=== PATIENT | male | born 1960 | race Caucasian/White ===

== ENCOUNTER 2016-07-15 12:41 | Emergency (ER) | payer OTHER ==
[~2016-07-15] VITALS: Ht 162.6 cm; Wt 65.8 kg
[~2016-07-15 12:41] MED LIST: AMOXICILLIN500 MG PO; ASPIRIN81 M1 PO; AZULFIDINE500 M1 PO; CLARITIN10 MG PO; GLUCOPHAGE500 MG PO; JANUMET 500 MG-1 TAB PO; LANTUS SOLOS100 U/ML SUBQ; LISINOPRIL5 M1 PO; LOPRESSOR25 MG PO
[2016-07-15 13:30] VITALS: BP 138/81
--- NOTE | 2016-07-15 14:30 | NUR ---
Patient to bed 06.
--- NOTE | 2016-07-15 14:35 | NUR ---
56/M BIB FAMILY C/O FACIAL SWELLING LEFT SIDE X4 DAYS---UPPER TOOTH PAIN FACIAL ASYMMETRY, TONGUE MIDLINE, NO DRIFT. PT DENIES N/V/D; SKIN IS PINK/WARM/DRY; AAOX4 WITH EVEN AND STEADY GAIT; LUNGS CLEAR BL; HR EVEN AND REGULAR; PT DENIES ANY FEVER, CP, SOB, OR COUGH AT THIS TIME; PATIENT STATES PAIN OF 8/10 AT THIS TIME; VSS; PATIENT POSITIONED FOR COMFORT; HOB ELEVATED; BEDRAILS UP X2; BED DOWN. ER MD MADE AWARE OF PT STATUS.
--- NOTE | 2016-07-15 14:52 | NUR ---
Dr. Dela Cruz evaluating patient at bedside.
[2016-07-15] MEDS ORDERED: MORPHINE SULFATE 2 MG/ML SYR IVP ONE ×2 (15:05→16:55)
[2016-07-15] MEDS ORDERED: NACL 0.9% 1,000 ML IV ONE ×2 (15:05→16:00)
[2016-07-15] MEDS ORDERED: NACL 0.9% 500 ML IV ONE (17:35)
[2016-07-15] MEDS: metFORMIN 500 MG TAB PO STA ×2 (18:13→18:19)
[2016-07-15] MEDS: metFORMIN 500 MG TAB PO SCH ×2 (18:14→18:17)
--- NOTE | 2016-07-15 19:00 | NUR ---
IV removed, catheter intact and site benign. Applied folded 4x4 gauze and tape to stop bleeding.
[2016-07-15 19:07] VITALS: BP 146/86
--- NOTE | 2016-07-15 19:07 | NUR ---
Patient discharged with v/s stable. Written and verbal after care instructions given and explained. Patient alert, oriented and verbalized understanding of instructions. Ambulatory with steady gait. All questions addressed prior to discharge. ID band removed. Patient advised to follow up with PMD. Rx of METFORMIN HYDROCHLORIDE, IBUPROFEN, AUGMENTIN & NORCO given. Patient educated on indication of medication including possible reaction and side effects. Opportunity to ask questions provided and answered.
== END 2016-07-15 19:07 | disposition home or self-care (01) ==
LOC: MED 12:41
DX: K04.7 Periapical abscess without sinus (principal); E11.65 Type 2 diabetes mellitus with hyperglycemia; E87.1 Hypo-osmolality and hyponatremia; Z79.82 Long term (current) use of aspirin; Z79.899 Other long term (current) drug therapy
CPT/HCPCS: 36415; 80053; 81001; 82009; 82948; 85025; 96361; 96374; 99284; J2270; J7030

== ENCOUNTER 2017-06-17 23:34 | Emergency (ER) | payer OTHER ==
[~2017-06-17] VITALS: Ht 162.6 cm; Wt 67.8 kg
[~2017-06-17 23:34] MED LIST changes: +AMOX500C25 PO; -AMOXICILLIN500 MG PO; +ASPI81CT89 PO; -ASPIRIN81 M1 PO; -AZULFIDINE500 M1 PO; -CLARITIN10 MG PO; -GLUCOPHAGE500 MG PO; -JANUMET 500 MG-1 TAB PO; -LANTUS SOLOS100 U/ML SUBQ; -LISINOPRIL5 M1 PO; -LOPRESSOR25 MG PO; +METF1TAB PO; +METO25TA PO
[2017-06-17 23:45] VITALS: BP 183/97
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
[2017-06-18] MEDS ORDERED: HYDROcodone/APAP 10/325 MG 1 TAB TAB PO ONE (00:10)
[2017-06-18 02:07] VITALS: BP 142/79
--- NOTE | 2017-06-18 02:07 | NUR ---
Patient discharged with v/s stable. Written and verbal after care instructions given and explained. Pt states pain reduced to 6/10. Patient alert, oriented and verbalized understanding of instructions. Ambulatory with steady gait. All questions addressed prior to discharge. ID band removed. Patient advised to follow up with PMD. Rx of Fortescue given. Patient educated on indication of medication including possible reaction and side effects. Opportunity to ask questions provided and answered.
== END 2017-06-18 02:07 | disposition home or self-care (01) ==
LOC: MED 23:34
DX: S20.20XA Contusion of thorax, unspecified, initial encounter (principal); E11.9 Type 2 diabetes mellitus without complications; I10 Essential (primary) hypertension; Z79.899 Other long term (current) drug therapy; Z79.82 Long term (current) use of aspirin; V03.09XA Pedestrian with other conveyance injured in collision with car, pick-up truck or van in nontraffic accident, initial encounter; Y93.89 Activity, other specified; Y92.59 Other trade areas as the place of occurrence of the external cause; Y99.8 Other external cause status
CPT/HCPCS: 71101; 99284

== ENCOUNTER 2017-06-19 18:30 | Emergency (ER) | payer OTHER ==
[~2017-06-19] VITALS: Ht 162.6 cm; Wt 67.8 kg
[2017-06-19 19:06] VITALS: BP 150/89
--- NOTE | 2017-06-19 19:45 | NUR ---
PT TAKEN TO BED 4
[2017-06-19] MEDS ORDERED: KETOROLAC 60 MG/2 ML VIAL IM ONE (20:50)
--- NOTE | 2017-06-19 21:00 | NUR ---
PT C/O RT SIDE RIB PAIN S/P FALL ON MONDAY. PT WAS SEEN HERE IN HOSPITAL ON MONDAY AND D/C. PT STATES PAIN IS "WORSE" AND "BONES ARE MOVING". NO OPEN SKIN, REDNESS, BLEEDING, OR SWELLING NOTED. PT STATES HE FELL ONTO TOOL BOX ON MONDAY ON HIS RIGHT SIDE OF RIBS. PT HAS TENDERNESS TO RT SIDE OF RIBS 7/10 PAIN AT REST. PT DENIES LOC, PT AA&OX4 IN BED.
[2017-06-19 21:48] VITALS: BP 151/80
--- NOTE | 2017-06-19 21:48 | NUR ---
Patient discharged with v/s stable. Written and verbal after care instructions given and explained. Patient alert, oriented and verbalized understanding of instructions. Ambulatory with steady gait. All questions addressed prior to discharge. ID band removed. Patient advised to follow up with PMD. Rx of FLEXERIL, NAPROXEN given. Patient educated on indication of medication including possible reaction and side effects. Opportunity to ask questions provided and answered.
== END 2017-06-19 21:48 | disposition home or self-care (01) ==
LOC: MED 18:30
DX: S20.211A Contusion of right front wall of thorax, initial encounter (principal); E11.9 Type 2 diabetes mellitus without complications; I10 Essential (primary) hypertension; W18.39XA Other fall on same level, initial encounter; Y93.89 Activity, other specified; Y92.89 Other specified places as the place of occurrence of the external cause; Y99.8 Other external cause status
CPT/HCPCS: 71101; 76705; 96372; 99284; J1885; Q0092

== ENCOUNTER 2017-12-13 05:00 | Emergency (ER) | payer OTHER ==
[~2017-12-13] VITALS: Ht 152.4 cm; Wt 68.0 kg
[2017-12-13 05:03] VITALS: BP 173/99
[2017-12-13] MEDS ORDERED: LANTUS SUBQ (05:42)
[2017-12-13 05:52] LABS: BASOPHILS # (AUTO) 0.1 K/uL (0.00-0.22); BASOPHILS % (AUTO) 0.9 % (0.0-2.0); EOSINOPHILS # (AUTO) 0.6 K/uL (0-0.4); EOSINOPHILS % (AUTO) 8.2 % (0.0-4.0); LYMPHOCYTES # (AUTO) 1.6 K/uL (2.0-11.5); MEAN CORPUSCULAR HEMOGLOBIN 30 pg (27-31); MEAN CORPUSCULAR HGB CONC 33 g/dL (33-37); MEAN CORPUSCULAR VOLUME 91.2 fL (80-94); MONOCYTES # (AUTO) 0.6 K/uL (0.8-1.0); MONOCYTES % (AUTO) 8.1 % (1.7-9.3); NEUTROPHILS # (AUTO) 4.2 K/uL (1.8-7.7); NEUTROPHILS % (AUTO) 59.8 % (42.2-75.2); PLATELET COUNT (AUTO) 250 K/uL (140-450); RED BLOOD CELL COUNT(AUTO) 4.06 MIL/uL (4.20-6.10); RED CELL DISTRIBUTION WIDTH 13.9 % (11.6-13.7)
[2017-12-13 05:59] LABS: APPEARANCE,URINE CLEAR (CLEAR); BILIRUBIN,URINE NEGATIVE (NEGATIVE); BLOOD, URINE 1+ (NEGATIVE); COLOR,URINE YELLOW (YELLOW); LEUKOCYTE ESTERASE ,URINE NEGATIVE (NEGATIVE); NITRITE, URINE NEGATIVE (NEGATIVE); PH,URINE 5.5 (5.0-9.0); UGLUCOSE NEGATIVE (NEGATIVE)
[2017-12-13 06:00] LABS: BARBITURATE, URINE NEG. ng/ml (NEG <=200); BENZODIAZEPINE, URINE NEG. ng/mL (NEG <=200); CANNABINOID, URINE NEG. ng/mL (NEG <=50); COCAINE, URINE NEG. ng/mL (NEG <=300); OPIATE, URINE NEG. ng/mL (NEG <=2000); PHENCYCLIDINE SCREEN,URINE NEG. ng/mL (NEG <=25)
[2017-12-13 06:09] LABS: ANION GAP 12.7 (8-16); CREATININE 1.1 mg/dL (0.7-1.3); POTASSIUM 3.7 mmol/L (3.5-5.1)
[2017-12-13 06:20] LABS: ALBUMIN 3.4 g/dL (3.4-5.0); TOTAL BILIRUBIN 0.3 mg/dL (0.0-1.0)
[2017-12-13 06:21] LABS: RBC,URINE 3-10 (FEW) /HPF (0-5); WBC,URINE 0-5 (RARE) /HPF (0-5)
[2017-12-13 06:22] LABS: YEAST,URINE Rare /HPF (None Seen)
[2017-12-13 06:40] VITALS: BP 178/90
== END 2017-12-13 06:40 | disposition home or self-care (01) ==
LOC: MED 05:00
DX: R60.0 Localized edema (principal); E11.649 Type 2 diabetes mellitus with hypoglycemia without coma; I10 Essential (primary) hypertension; Z79.4 Long term (current) use of insulin; Z79.899 Other long term (current) drug therapy
CPT/HCPCS: 36415; 71045; 80053; 80305; 81001; 82948; 83880; 85025; 93005; 99285; Q0092

== ENCOUNTER 2018-04-16 20:45 | Emergency (ER) | payer OTHER ==
[~2018-04-16] VITALS: Ht 165.1 cm; Wt 62.6 kg
[~2018-04-16 20:45] MED LIST changes: -AMOX500C25 PO; -ASPI81CT89 PO; +LANTUS SUBQ; -METF1TAB PO
[2018-04-16 20:54] VITALS: BP 176/96
[2018-04-16] MEDS ORDERED: NACL 0.9% 1,000 ML IV ONE (21:28)
[2018-04-16] MEDS ORDERED: NACL 0.9% 1,000 ML IV SCH (21:28)
[2018-04-16] MEDS ORDERED: hydrALAZINE 20 MG/ML VIAL IVP ONE (21:30)
[2018-04-16 22:03] LABS: BASOPHILS # (AUTO) 0.1 K/uL (0.00-0.22); BASOPHILS % (AUTO) 1.4 % (0.0-2.0); EOSINOPHILS # (AUTO) 0.5 K/uL (0-0.4); EOSINOPHILS % (AUTO) 8.9 % (0.0-4.0); HEMATOCRIT 34.1 % (36-52); HEMOGLOBIN 11.4 g/dL (12.0-18.0); LYMPHOCYTES # (AUTO) 1.2 K/uL (2.0-11.5); LYMPHOCYTES % (AUTO) 19.5 % (20.5-51.1); MEAN CORPUSCULAR HEMOGLOBIN 29 pg (27-31); MEAN CORPUSCULAR HGB CONC 33 g/dL (33-37); MEAN CORPUSCULAR VOLUME 88.2 fL (80-94); MONOCYTES # (AUTO) 0.6 K/uL (0.8-1.0); MONOCYTES % (AUTO) 9.7 % (1.7-9.3); NEUTROPHILS # (AUTO) 3.6 K/uL (1.8-7.7); NEUTROPHILS % (AUTO) 60.5 % (42.2-75.2); PLATELET COUNT (AUTO) 255 K/uL (140-450); RED BLOOD CELL COUNT(AUTO) 3.86 MIL/uL (4.20-6.10); RED CELL DISTRIBUTION WIDTH 12.9 % (11.6-13.7); WHITE BLOOD COUNT (AUTO) 5.9 K/uL (4.8-10.8)
[2018-04-16 22:18] LABS: ALBUMIN 2.3 g/dL (3.4-5.0); ANION GAP 9.6 (8-16); CARBON DIOXIDE 27.3 mmol/L (21-32); CREATININE 1.6 mg/dL (0.7-1.3); POTASSIUM 4.9 mmol/L (3.5-5.1); TOTAL BILIRUBIN 0.2 mg/dL (0.0-1.0)
[2018-04-16 23:20] VITALS: BP 120/63
== END 2018-04-16 23:20 | disposition home or self-care (01) ==
LOC: MED 20:45
DX: E11.65 Type 2 diabetes mellitus with hyperglycemia (principal); I10 Essential (primary) hypertension; Z79.4 Long term (current) use of insulin; Z79.899 Other long term (current) drug therapy
CPT/HCPCS: 36415; 70450; 71045; 80053; 82948; 84484; 85025; 93005; 96361; 96374; 99284; J0360; J7030; Q0092

== ENCOUNTER 2019-08-15 20:42 | Emergency (ER) | payer OTHER ==
[~2019-08-15] VITALS: Ht 162.6 cm; Wt 68.0 kg
--- NOTE | 2019-08-15 20:50 | NUR ---
PT AMBULATES TO BED 12 WITH UPRIGHT STEADY GAIT.
--- NOTE | 2019-08-15 21:20 | NUR ---
XRAY AT BEDSIDE.
--- NOTE | 2019-08-15 21:41 | NUR ---
PT FELL AT 1830 AT THE STORE; SLIPPED AND FELL ON RIGHT KNEE AND HIP. PAIN 6/10 TO HIP AND KNEE; NO REDNESS, SWELLING, OR BRUISING NOTED. DENIES HITTING HEAD. DENIES TAKING ANY MEDICATIONS FOR THE PAIN. DENIES TAKING BLOOD THINNERS. DENIES LIGHTHEADED OR DIZZINESS. LEGS EQUAL IN LENGTH; NO OBVIOUS DEFORMITIES. DORSALIS PEDIS PULSES +3 BILATERALLY. VSS. WILL CONTINUE TO MONITOR.
[2019-08-15 21:45] VITALS: BP 170/92
== END 2019-08-15 21:45 | disposition home or self-care (01) ==
LOC: MED 20:42
DX: S70.01XA Contusion of right hip, initial encounter (principal); I10 Essential (primary) hypertension; E11.9 Type 2 diabetes mellitus without complications; E78.5 Hyperlipidemia, unspecified; W01.0XXA Fall on same level from slipping, tripping and stumbling without subsequent striking against object, initial encounter; Y93.89 Activity, other specified; Y92.512 Supermarket, store or market as the place of occurrence of the external cause; Y99.8 Other external cause status
CPT/HCPCS: 73502; 99283; Q0092

== ENCOUNTER 2019-09-25 19:57 | Emergency (ER) | payer OTHER ==
[~2019-09-25] VITALS: Ht 167.6 cm; Wt 77.1 kg
[2019-09-25 20:06] VITALS: BP 161/86
[2019-09-25] MEDS ORDERED: NACL 0.9% 1,000 ML IV ONE ×2 (20:15→21:10)
[2019-09-25] MEDS ORDERED: LISINOPRIL 20 MG TAB PO ONE (20:15)
--- NOTE | 2019-09-25 20:20 | NUR ---
stat labs drawn and given to tutorial laboratory supervisor
--- NOTE | 2019-09-25 20:25 | NUR ---
59 Y/M BIBA FROM WORK FOR C/O GENERALIZED WEAKNESS X 5 DAYS. PT ALSO REPORTS DIZZINESS, BLURRED VISION, LIGHTHEADED AND BODY ACHES. PT DENIES ANY HEADACHE, CHEST PAIN, ABD PAIN, OR DYSURIA. PT DENIES N/V/D. PT HAS HX OF DM TYPE II AND HAS BEEN NON COMPLIANT WITH MEDICATIONS X 2 MONTHS. PT AFEBRILE. PT STATES HE HAS HAD COUGH ON AND OFF X 1 YEAR. LUNGS CLEAR, RR EVEN AND UNLABORED. MED HX: DM TYPE II, HTN NKDA
[2019-09-25 20:36] LABS: BASOPHILS % (AUTO) 0.5 % (0.0-2.0); EOSINOPHILS # (AUTO) 0.1 K/uL (0-0.4); EOSINOPHILS % (AUTO) 1.1 % (0.0-4.0); HEMATOCRIT 39.2 % (36-52); HEMOGLOBIN 12.9 g/dL (12.0-18.0); LYMPHOCYTES # (AUTO) 1.1 K/uL (2.0-11.5); LYMPHOCYTES % (AUTO) 19.4 % (20.5-51.1); MEAN CORPUSCULAR HEMOGLOBIN 30 pg (27-31); MEAN CORPUSCULAR HGB CONC 33 g/dL (33-37); MEAN CORPUSCULAR VOLUME 89.8 fL (80-94); MONOCYTES # (AUTO) 0.8 K/uL (0.8-1.0); MONOCYTES % (AUTO) 12.9 % (1.7-9.3); NEUTROPHILS # (AUTO) 3.9 K/uL (1.8-7.7); NEUTROPHILS % (AUTO) 66.1 % (42.2-75.2); PLATELET COUNT (AUTO) 203 K/uL (140-450); RED BLOOD CELL COUNT(AUTO) 4.37 MIL/uL (4.20-6.10); RED CELL DISTRIBUTION WIDTH 12.9 % (11.6-13.7); WHITE BLOOD COUNT (AUTO) 5.9 K/uL (4.8-10.8)
--- NOTE | 2019-09-25 20:40 | NUR ---
XR AT BEDSIDE.
[2019-09-25 20:53] LABS: APPEARANCE,URINE CLEAR (CLEAR); BILIRUBIN,URINE NEGATIVE (NEGATIVE); BLOOD, URINE 2+ (NEGATIVE); COLOR,URINE YELLOW (YELLOW); LEUKOCYTE ESTERASE ,URINE NEGATIVE (NEGATIVE); NITRITE, URINE NEGATIVE (NEGATIVE); UGLUCOSE 3+ (NEGATIVE)
[2019-09-25 20:53] LABS: ACETONE, SERUM NEGATIVE (NEGATIVE)
--- NOTE | 2019-09-25 20:55 | NUR ---
CALLED INTELLIGENCE SUPPORT OFFICER FOR MEAL FOR PT. OK PER DR. MCFARLANE.
[2019-09-25 21:00] LABS: ALBUMIN 1.7 g/dL (3.4-5.0); ANION GAP 10.8 (8-16); ASPARTATE AMINOTRANSFERASE 21 U/L (15-37); CARBON DIOXIDE 24.6 mmol/L (21-32); CHLORIDE 99 mmol/L (98-107); CREATININE 2.9 mg/dL (0.6-1.3); GFR ARICAN-AMERICAN 29 mL/min (>90); POTASSIUM 4.4 mmol/L (3.5-5.1); SODIUM SERUM 130 mmol/L (136-145); TOTAL BILIRUBIN 0.2 mg/dL (0.0-1.0); UREA NITROGEN, BLOOD 41 mg/dL (7-18)
--- NOTE | 2019-09-25 21:00 | NUR ---
CRITICAL LAB REPORT FROM DAMASO. GLUCOSE 476. ERMD MADE AWARE.
[2019-09-25 21:02] LABS: GLUCOSE 476 mg/dL (74-106)
[2019-09-25 21:09] LABS: RBC,URINE 0-5 /HPF (0-5); WBC,URINE NONE SEEN /HPF (0-5)
[2019-09-25 21:10] LABS: WAXY CASTS,URINE 0-10 /LPF (None Seen)
[2019-09-25] MEDS ORDERED: NACL 0.9% 500 ML IV ONE ×2 (21:10→22:05)
[2019-09-25] MEDS ORDERED: metFORMIN 500 MG TAB PO SCH (21:10)
[2019-09-25] MEDS ORDERED: INSULIN REGULAR, HUMAN 100 UNIT/ML VIAL SUBQ ONE ×2 (21:10→22:05)
--- NOTE | 2019-09-25 21:13 | NUR ---
PT SITTING UP IN BED EATING SANDWICH.
--- NOTE | 2019-09-25 22:41 | NUR ---
PT RESTING IN BED IN POSITION OF COMFORT, VSS, BED LOW AND LOCKED, 1 SIDERAIL UP , WILL CONTINUE TO MONITOR
--- NOTE | 2019-09-25 23:06 | NUR ---
LAB AT BEDSIDE.
[2019-09-25 23:25] LABS: ANION GAP 10.8 (8-16); CARBON DIOXIDE 22.1 mmol/L (21-32); CREATININE 2.5 mg/dL (0.6-1.3); POTASSIUM 3.9 mmol/L (3.5-5.1)
--- NOTE | 2019-09-26 00:15 | NUR ---
PT RESTING IN BED IN POSITION OF COMFORT, VSS, BED LOW AND LOCKED, 1 SIDERAIL UP , WILL CONTINUE TO MONITOR
[2019-09-26 01:02] VITALS: BP 137/71
--- NOTE | 2019-09-26 01:02 | NUR ---
Patient discharged with v/s stable. Written and verbal after care instructions given and explained. Patient alert, oriented and verbalized understanding of instructions. Ambulatory with steady gait. All questions addressed prior to discharge. ID band removed. Patient advised to follow up with PMD. Rx of AMLODIPINE/METFORMIN given. Patient educated on indication of medication including possible reaction and side effects. Opportunity to ask questions provided and answered.
== END 2019-09-26 01:02 | disposition home or self-care (01) ==
LOC: MED 19:57
DX: E11.65 Type 2 diabetes mellitus with hyperglycemia (principal); I10 Essential (primary) hypertension; N28.9 Disorder of kidney and ureter, unspecified; Z79.899 Other long term (current) drug therapy
CPT/HCPCS: 36415; 71045; 80048; 80053; 81001; 82009; 85025; 99284; J1815; J7030; Q0092

== ENCOUNTER 2019-09-29 17:17 | Inpatient (IN) | payer OTHER, SELFPAY ==
[~2019-09-29] VITALS: Ht 154.9 cm; Wt 64.9 kg
--- NOTE | 2019-09-29 17:25 | NUR ---
PT AMBULATED TO BED 10.
[2019-09-29 17:30] VITALS: BP 105/55
--- NOTE | 2019-09-29 18:00 | NUR ---
C/O WEAKNESS/COUGH/FEVER X4 DAYS. PT STATES HE WAS SEEN AT [facility] 09/25/19 AND SENT HOME. PT IS FEBRILE AT 100.9 PO, O2 SAT 95% RA WITH MOIST COUGH. NO RESP. DISTRESS NOTED. PT AWAKE ,ALERT, AFIBRILE , AMBULATORY WITH STEADY GAIT , SCE , CBS BLF , FLAT SOFT NABS NONTENDER ABDOMEN. HX: DM, HTN
[2019-09-29] MEDS ORDERED: NACL 0.9% 1,000 ML IV ONE ×2 (18:05→19:55)
[2019-09-29] MEDS ORDERED: INSULIN REGULAR, HUMAN 100 UNIT/ML VIAL SUBQ ONE (18:10)
--- NOTE | 2019-09-29 18:10 | NUR ---
DR GOMEZ AT BEDSIDE EVALUATING PT .
[2019-09-29 18:33] LABS: BASOPHILS % (AUTO) 0.3 % (0.0-2.0); HEMOGLOBIN 12.8 g/dL (12.0-18.0); LYMPHOCYTES # (AUTO) 0.6 K/uL (2.0-11.5); LYMPHOCYTES % (AUTO) 4.4 % (20.5-51.1); MEAN CORPUSCULAR HEMOGLOBIN 30 pg (27-31); MEAN CORPUSCULAR HGB CONC 32 g/dL (33-37); MEAN CORPUSCULAR VOLUME 92.3 fL (80-94); MONOCYTES # (AUTO) 0.5 K/uL (0.8-1.0); MONOCYTES % (AUTO) 3.5 % (1.7-9.3); NEUTROPHILS # (AUTO) 12.6 K/uL (1.8-7.7); NEUTROPHILS % (AUTO) 91.8 % (42.2-75.2); PLATELET COUNT (AUTO) 241 K/uL (140-450); RED BLOOD CELL COUNT(AUTO) 4.33 MIL/uL (4.20-6.10); RED CELL DISTRIBUTION WIDTH 13.2 % (11.6-13.7); WHITE BLOOD COUNT (AUTO) 13.8 K/uL (4.8-10.8)
--- NOTE | 2019-09-29 18:47 | NUR ---
PT COMFORTABLE IN BE SIDE RAILS UP X1 AND LOCK.
[2019-09-29 19:05] LABS: D-DIMER 1270 ng/ml (0-400)
--- NOTE | 2019-09-29 19:05 | NUR ---
rt at bedside.
--- NOTE | 2019-09-29 19:09 | NUR ---
gave report to davon garcia. pt awake in bed with stable v/s.
[2019-09-29 19:12] LABS: FIBRINOGEN > 500 mg/dL (200-400)
[2019-09-29] MEDS ORDERED: AZITHROMYCIN 250 MG TAB PO ONE (19:15)
[2019-09-29 19:25] LABS: ALBUMIN 1.5 g/dL (3.4-5.0); ANION GAP 18.4 (8-16); CARBON DIOXIDE 18.3 mmol/L (21-32); CREATININE 3.5 mg/dL (0.6-1.3); POTASSIUM 5.7 mmol/L (3.5-5.1); TOTAL BILIRUBIN 0.2 mg/dL (0.0-1.0)
[2019-09-29] MEDS ORDERED: cefTRIAXone 1,000 MG VIAL ONE (19:27)
--- NOTE | 2019-09-29 19:45 | NUR ---
AZITHROMYCIN PO AND ROCEPHIN IV PB INITIATED. 2ND IV SITE STARTED ON LEFT AC 18G WITH NS BOLUS
--- NOTE | 2019-09-29 19:45 | NUR ---
BLOOD SUGAR 546. DR WILLOUGHBY MADE AWARE.
--- NOTE | 2019-09-29 19:49 | NUR ---
Dr. Sam examining patient.
[2019-09-29] MEDS ORDERED: INSULIN REGULAR, HUMAN 100 UNIT in NACL 0.9% 100 ML IV ONE ×2 (19:55)
--- NOTE | 2019-09-29 20:00 | NUR ---
URINE COLLECTED AND SENT TO LAB.
--- NOTE | 2019-09-29 20:30 | NUR ---
INSULIN 100UNIT INFUSION INITIATED AT 7UNITS/HR
[2019-09-29 20:45] LABS: APPEARANCE,URINE HAZY (CLEAR); BILIRUBIN,URINE NEGATIVE (NEGATIVE); BLOOD, URINE 2+ (NEGATIVE); COLOR,URINE YELLOW (YELLOW); LEUKOCYTE ESTERASE ,URINE NEGATIVE (NEGATIVE); NITRITE, URINE NEGATIVE (NEGATIVE); UGLUCOSE 3+ (NEGATIVE)
[2019-09-29 20:50] VITALS: BP 129/63
[2019-09-29 20:50] LABS: COARSE GRANULAR CASTS,URINE 0-10 /LPF (None Seen); RBC,URINE 11-20 (MOD) /HPF (0-5); WBC,URINE 0-5 /HPF (0-5)
--- NOTE | 2019-09-29 20:50 | NUR ---
REPORT RECEIVED FROM ED NURSE AT BEDSIDE. PT IN STABLE CONDITION. AAOX4. PT HAS COMPLAINTS OF PAIN. WILL MEDICATE. NO SOB WITH A INTERMITTENT COUGH. AFEBRILE@97.8. PT IS AMBULATORY WITH ASSIST DUE TO GENERALIZED WEAKNESS. PT IS R/O COVID19 DUE TO COUGH UPON ADMISSION. DRY WEIGHT 65KG. IV SITE L AC 18G SL PATENT AND INTACT. R AC 20G RUNNING REGULAR INSULIN@7UNITS/HR PATENT AND INTACT. SKIN WARM, DRY, AND INTACT WITH NO OPEN WOUNDS. BED LOCKED IN LOW POSITION. CALL LAWSON WITHIN REACH. SAFETY PRECAUTION IN PLACE. ALL NEEDS MET AT THIS TIME.
[2019-09-29] MEDS: INSULIN REGULAR, HUMAN 100 UNIT in NACL 0.9% 100 ML IV SCH ×6 (21:00→23:00)
[2019-09-29] MEDS: BLOOD GLUCOSE MONITORING 1 DEV DEV FS SCH ×3 (21:00→22:59)
--- NOTE | 2019-09-29 21:00 | NUR ---
Patient will be admitted to care of DR SULTANA. Admited to ICU . Will go to room 8. Belongings list completed. Report to AUDELIA GIL .
--- NOTE | 2019-09-29 21:00 | NUR ---
BS 443. AWAITING FOR INSULIN DRIP ORDERS.
[2019-09-29 22:00] VITALS: BP 103/54
[2019-09-29] MEDS ORDERED: ONDANSETRON 4 MG/2 ML VIAL IVP PRN (22:00)
[2019-09-29] MEDS ORDERED: ALBUTEROL 0.083% 2.5 MG/3 ML NEBU INH PRN (22:00)
[2019-09-29] MEDS ORDERED: IPRATROPIUM 0.02% 0.5 MG/2.5 ML NEBU INH PRN (22:00)
[2019-09-29] MEDS ORDERED: MAG SULF 2000 MG/WATER PREMIX 50 ML IV PRN (22:00)
[2019-09-29] MEDS ORDERED: SODIUM PHOSPHATE 118 ML ENEM RC PRN (22:00)
[2019-09-29] MEDS ORDERED: MAGNESIUM OXIDE 400 MG TAB PO PRN (22:00)
[2019-09-29] MEDS ORDERED: MORPHINE SULFATE 2 MG/ML SYR IVP PRN (22:00)
[2019-09-29] MEDS ORDERED: cloNIDine 0.1 MG TAB PO PRN (22:00)
[2019-09-29] MEDS ORDERED: ACETAMINOPHEN 650 MG SUPP RC PRN (22:00)
[2019-09-29] MEDS ORDERED: ZOLPIDEM 5 MG TAB PO PRN (22:00)
[2019-09-29] MEDS ORDERED: DOCUSATE SODIUM 250 MG GELCAP PO PRN (22:00)
[2019-09-29] MEDS ORDERED: BISACODYL 10 MG SUPP RC PRN (22:00)
[2019-09-29] MEDS ORDERED: LORazepam 2 MG/ML VIAL IVP PRN (22:00)
[2019-09-29] MEDS ORDERED: ACETAMINOPHEN 325 MG TAB PO PRN (22:00)
[2019-09-29] MEDS ORDERED: POTASSIUM CHLORIDE 10 MEQ TABER PO PRN (22:00)
[2019-09-29] MEDS ORDERED: ALUMINUM HYD/MAG/SIMETHICONE 30 ML UDC PO PRN (22:00)
[2019-09-29] MEDS ORDERED: diphenhydrAMINE 50 MG/ML VIAL IVP PRN (22:00)
[2019-09-29] MEDS ORDERED: HYDROcodone/APAP 5/325 MG 1 TAB TAB PO PRN ×2 (22:00)
--- NOTE | 2019-09-29 22:00 | NUR ---
BS 346. AWAITING INSULIN DRIP ORDERS.
[2019-09-29] MEDS ORDERED: INSULIN REGULAR, HUMAN 100 UNIT in NACL 0.9% 100 ML IV SCH ×2 (22:30)
[2019-09-29] MEDS ORDERED: NACL 0.9% 1,000 ML IV SCH (22:35)
--- NOTE | 2019-09-29 22:50 | NUR ---
BS 269. INSULIN DRIP DECREASED TO 6.5UNITS/HR PER PROTOCOL.
--- NOTE | 2019-09-29 22:55 | NUR ---
PHONE CALL FROM DR PENA; UPDATED ON PTS PRESENT CONDITION.READ BACK AND VERIFIED INSULIN DRIP PROTOCOL WITH DR PENA; ORDERED LABS NOW INSTEAD OF THE 0000 AND TO CALL HIM FOR RESULTS.
[2019-09-29 23:29] LABS: ANION GAP 14.9 (8-16); CARBON DIOXIDE 17.2 mmol/L (21-32); CREATININE 3.1 mg/dL (0.6-1.3); POTASSIUM 4.1 mmol/L (3.5-5.1)
--- NOTE | 2019-09-29 23:30 | NUR ---
PHONE CALL FROM ROSANNE; EMMANUELLE DAUGHTER.WITH PERMISSION FROM THE PT; UPDATED ROSANNE ON PTS PRESENT CONDITION.QUESTIONS ANSWERED.ALSO VERIFIED WITH SHERLY MCLEOD; PTS HOME,SHE SAID SOMETIMES PT SLEEPS IN HIS FRIENDS HOUSE AND SOMETIMES IN THE CAR.
[2019-09-29 23:33] LABS: MAGNESIUM 1.6 mg/dL (1.8-2.4); PHOSPHORUS 3.2 mg/dL (2.5-4.9)
[2019-09-30] VITALS (13 sets, daily range): BP systolic 91–154; BP diastolic 50–76
--- NOTE | 2019-09-30 | NUR ---
BS 182. PER PROTOCOL INSULIN DRIP DECREASED TO 3.25 UNITS/HR.
--- NOTE | 2019-09-30 00:01 | NUR ---
PHONE CALL TO MISTY LI RE; LAB RESULTS; AWAITING CALL BACK
[2019-09-30] MEDS: INSULIN REGULAR, HUMAN 100 UNIT in NACL 0.9% 100 ML IV SCH ×2 (00:11)
--- NOTE | 2019-09-30 00:20 | NUR ---
CALLED MISTY LI AGAIN; SPOKE WITH EXCHANGE; SHE SAID SHE WILL TRY TO CONNECT DIRECTLY TO MD; NO ANSWER.EXCHANGE SAID SHE WILL TRY AGAIN LATER
[2019-09-30] MEDS: BLOOD GLUCOSE MONITORING 1 DEV DEV FS SCH ×5 (01:00→21:00)
--- NOTE | 2019-09-30 01:00 | NUR ---
BS 85. NO INSULIN COVERAGE NEEDED. INSULIN DRIP TURNED OFF. FLUID CHANGED TO D5 1/2NS@40ML/HR PER DR. DAMON.
--- NOTE | 2019-09-30 01:13 | NUR ---
PHONE CALL TO DR PENA AGAIN.NO ANSWER; TOLD EXCHANGE TO CALL DR DAMON INSTEAD
--- NOTE | 2019-09-30 01:20 | NUR ---
SPOKE TO DR. DAMON. NEW ORDERS FOR D5 1/2NS@40ML/HR. PT ON SLIDING SCALE AND BS ACHS. ALSO REFUSED ORDER FOR LONG ACTING INSULIN. Addendum: 09/30/19 at 0320 by Ld Hopkins RN MD ORDERED TO GIVEN PATIENT 4G OF MAG HUDSON.
[2019-09-30] MEDS: DEXT 5% / NACL 0.45% 1,000 ML IV SCH (01:53)
[2019-09-30] MEDS ORDERED: MAG SULF 2000 MG/WATER PREMIX 100 ML IV ONE (03:25)
[2019-09-30] MEDS: guaiFENesin DM 200/20 MG-10 ML 10 ML UDC PO PRN ×2 (04:05→11:24)
[2019-09-30] MEDS: MAG SULF 2000 MG/WATER PREMIX 50 ML IV PRN ×2 (04:14→05:38)
--- NOTE | 2019-09-30 04:14 | NUR ---
BAG 1 OF 2 LULÚ HUDSON. ORDERED 4GM. ROBITUSSIN GIVEN FOR COUGH.
--- NOTE | 2019-09-30 05:38 | NUR ---
BAG 2 OF 2 MAGNESIUM HUNG.
[2019-09-30 05:42] LABS: BASOPHILS % (AUTO) 0.4 % (0.0-2.0); EOSINOPHILS % (AUTO) 0.3 % (0.0-4.0); HEMATOCRIT 34.8 % (36-52); HEMOGLOBIN 11.8 g/dL (12.0-18.0); LYMPHOCYTES # (AUTO) 1.2 K/uL (2.0-11.5); LYMPHOCYTES % (AUTO) 9.4 % (20.5-51.1); MEAN CORPUSCULAR HEMOGLOBIN 30 pg (27-31); MEAN CORPUSCULAR HGB CONC 34 g/dL (33-37); MEAN CORPUSCULAR VOLUME 88.5 fL (80-94); MONOCYTES # (AUTO) 0.5 K/uL (0.8-1.0); MONOCYTES % (AUTO) 4.1 % (1.7-9.3); NEUTROPHILS # (AUTO) 10.6 K/uL (1.8-7.7); NEUTROPHILS % (AUTO) 85.8 % (42.2-75.2); PLATELET COUNT (AUTO) 221 K/uL (140-450); RED BLOOD CELL COUNT(AUTO) 3.93 MIL/uL (4.20-6.10); WHITE BLOOD COUNT (AUTO) 12.4 K/uL (4.8-10.8)
--- NOTE | 2019-09-30 06:04 | NUR ---
BS 145. NO INSULIN COVERAGE NEEDED.
[2019-09-30 07:18] LABS: ANION GAP 15.6 (8-16); CARBON DIOXIDE 18.7 mmol/L (21-32); CREATININE 2.8 mg/dL (0.6-1.3); POTASSIUM 4.3 mmol/L (3.5-5.1)
[2019-09-30 07:21] LABS: C-REACTIVE PROTEIN QUANT 18.7 mg/dL (0.0-0.9)
--- NOTE | 2019-09-30 07:21 | NUR ---
REPORT GIVEN TO AM NURSE AT BEDSIDE. PT IN STABLE CONDITION.
--- NOTE | 2019-09-30 07:30 | NUR ---
RECEIVED CHANGE OF SHIFT REPORT FROM AIRFREIGHT LOADING SUPERVISOR NURSE. PT IS A&OX4. GCS =15. ABLE TO FOLLOW SIMPLE COMMANDS. PT DENIES PAIN. STATES WEAKNESS. EYES PERRL 3MM. LUNG SOUNDS CLEAR W/ DIMINISHED BASES. EQUAL RISE AND FALL OF CHEST. S1S2 HEARD. +2 RADIAL PULSES FELT. CAP REFILL <3. PT ABLE TO MOVE EXTREMITIES WELL. PT HAS RIGHT AC 20 ASYMPTOMATIC, PATENT, INTACT RUNNING D5 1/2 NS AT 40 ML/HR. PT HAS LEFT AC SALINE LOCKED. BED IS LOCKED, IN LOW POSITION IN SEMI FOWLERS POSITION. WILL CONTINUE TO MONITOR.
--- NOTE | 2019-09-30 08:58 | NUR ---
PATIENT HAS BEEN SCREENED AND CATEGORIZED HIGH NUTRITION RISK. PATIENT WILL BE SEEN WITHIN 1-2 DAYS OF ADMISSION. 09/30/19-10/01/[address]
[2019-09-30] MEDS: METOPROLOL 25 MG TAB PO SCH ×2 (09:27→21:00)
[2019-09-30] MEDS: ENOXAPARIN 30 MG/0.3 ML SYR SUBQ SCH (09:40)
--- NOTE | 2019-09-30 10:10 | NUR ---
dISCHARGE PLANNING: THIS IS A 59 Y/O MALE PATIENT FROM HOME, WHO CAME IN DUE TO GENERALIZED WEAKNESS AND WORSENING LEG PAIN. PAST MEDICAL HISTORY INCLUDE DIABETES, HTN. INITIAL DIAGNOSIS OF DKA. CURRENT LABS INCLUDE WBC 12.4, H/H 11.8/34.8, NA/K 136/4.3, BUN/CREA 43/2.8, CRP 18.7 AND [id number]. D PARISA 953. COVID 19 NEGATIVE. ON AZITHROMYCIN AND ROCEPHIN. ON INSULIN DRIP. NO CONSULTS AT THIS TIME - PENDING ATTENDING. DC PLAN BACK TO HOME ONCE STABLE. Addendum: 10/01/19 at 1208 by Leidy Amador CM COVID TESTING PENDING. CURRENT LABS INCLUDE WBC 12.4, H/H 11.8/34.8, NA/K 127/4.4, BUN/CREA 45/2.6 AND D DIMER 953. ON ROCEPHIN AND AZITHROMYCIN. ON OXYMIZER AT 7LPM, O2 SAT 90%. NEPHRO CONSULT IN PLACE AND SEEN-CONTINUE TREATMENT OF DKA. DC PLAN BACK TO HOME ONCE STABLE Addendum: 10/02/19 at 1203 by Leidy Amador CM ON OXYMIZER AT 7 LPM - O2 SAT 94%. CURRENT LABS INCLUDE WBC 13.0, H/H 12.1/36.7, NA/K 136/3.8, BUN/CREA 35/2.2 AND ALB 1.0. ON AZITHROMYCIN AND ROCEPHIN. ENDO AND NEPHRO CONSULTS IN PLACE. DC PLAN PENDING ON PATIENT'S RESPONSE TO TREATMENT. Addendum: 10/03/19 at 1049 by Leidy Burnette Conorhuong ON OXYMIZER AT 13 LPM-O2 SAT 96%. CURRENT LABS INCLUDE WBC 9.2, H/H 11.4/34.2, NA/K 138/3.9, BUN/CREA 28/2.0 AND ALB 0.9. D DIMER TRENDING DOWN 953 FROM 1270. ON AZITHROMYCIN AND ROCEPHIN. RENAL AND BLADDER US SHOWED QUESTIONABLE NON OBSTRUCTING LEFT RENAL CALCULI. SEEN BY NEPHRO-SUSPECT UNDERLYING CKD DUE TO DM. ENDO AND NEPHRO CONSULTS IN PLACE. DC PLAN PENDING ON PATIENT'S RESPONSE TO TREATMENT. Addendum: 10/03/19 at 1341 by Leidy Amador CM RECEIVED AN ORDER FOR HIGHER LEVEL OF CARE FOR CONVALESCENT PLASMA TRANSFUSION. REFERRAL FAXED TO [facility] AND [facility]. OLGUIN OF [facility] MADE AWARE. ORDER FAXED TO [facility]. CM WILL FOLLOW UP. Addendum: 10/03/19 at 1405 by Leidy Amador CM CONTACTED [facility] TRANSFER CENTER AT [phone], ABLE TO SPEAK TO BHUPINDER. SHE STATED THAT THEY DO THE TEST FOR THEIR PATIENTS HOWEVER NOT SURE IF THEY ARE ABLE TO TAKE IN PATIENTS. SHE STATED SHE WILL CLARIFY AND WILL GIVE ME A CALL BACK. Addendum: 10/03/19 at 1410 by Leidy Amador CONTACTED [facility] AT [phone] [phone], NO ANSWER. LEFT MESSAGE. WILL FOLLOW UP. CONTACTED CLAU OF [facility], NO ANSWER. LEFT MESSAGE. Addendum: 10/03/19 at 1445 by Leidy Amador CONTACTED [facility], ABLE TO SPEAK TO OMAR, SHE STATED THEY HAVE NOT RECEIVE THE PAPERWORKS. SHE PROVIDED ME WITH FAX NUMBER [phone] TO SEND REFERRAL. REFERRAL SENT. I INFORMED HER THAT THE PATIENT IS COVID POSITIVE. SHE STATED THAT THE TELEMARKETING SALES REPRESENTATIVE FOR TODAY FOR PATIENT'S INSURANCE IS DR. AVENDANO. I TOLD HERE THAT THE SENDING DOC IS DR. DE PAZ. SHE STATED SHE WILL WAIT FOR THE REFERRAL AND WILL REVIEW AND WILL GIVE ME A CALL BACK. Addendum: 10/03/19 at 1509 by Leidy Amador CM CONTACTED BHUPINDER OF [facility] TRANSFER CENTER TO CONFIRM IF SHE FIND OUT IF THEY ARE ABLE TO TAKE PATIENTS IN. SHE STATED THEY ARE NOT ABLE TO TAKE PATIENTS IN "HONESTLY, WE SELDOM DO IT." RECEIVED A CALL BACK FROM CLAU OF [facility]. I INFORMED HIM REGARDING [facility] NOT ABLE TO ACCEPT THE PATIENT AND STILL WAITING TO HEAR BACK FROM [facility]. I ALSO ASKED HIM IF I CAN SEND IT TO OTHER HOSPITALS IF IN ANY CASE [facility] IS NOT ABLE TO ACCEPT THE PATIENT. HE STATED TO GO AHEAD AND SEND IT OVER TO [facility] AND [facility] [phone]. CONTACTED THE PROVIDED NUMBER FOR [facility], ABLE TO SPEAK TO DASH. SHE STATED I HAVE TO CALL THEIR TRANSFER CENTER FIRST. CONTACTED TRANSFER CENTER, ABLE TO SPEAK TO MAXIMILIANO. SHE STATED THEY DO NOT DO THE PROCEDURE AT THEIR HOSPITAL. RECEIVED A CALL FROM BHUPINDER OF [facility], STATING THAT SHE REACHED OUT TO ONE OF THEIR ID DOC REGARDING THE PROCEDURE AND STATED THAT THIS IS NOT ANYTHING THAT THEY ARE STORING. SHE STATED THEY ARE NOT ACCEPTING THIS CASE. Addendum: 10/03/19 at 1650 by Leidy Amador CM CONTACTED [facility] AT [phone], ABLE TO SPEAK TO RAY BUTTON BROACHER. HE CONFIRMED THAT THEY DO THE PROCEDURE BUT IS NOT ACCEPTING COVID POSITIVE PATIENT. CONTACTED [facility], NO ANSWER. LEFT MESSAGE. CLAU OF [facility] MADE AWARE THAT [facility] AND [facility] ARE NOT ABLE TO ACCEPT THE PATIENT. HE PROVIDED ME WITH LISTS OF HOSPITAL TO SEND REFERRAL: [facility], [facility], [facility] AND [facility] PER CARON BUTTON BROACHER AT [facility] [phone] THEY ARE NOT ABLE TO DO THE PROCEDURE. [facility] [phone] , ASKED TO BE TRANSFERRED TO THE - PER VELMA BUTTON BROACHER, THEY ARE NOT ABLE TO DO THE PROCEDURE. [facility] [phone], REQUESTED TO GET TRANSFERRED TO [facility]. NO ANSWER. LEFT MESSAGE. CLAU OF [facility] MADE AWARE. HE PROVIDED ME WITH TRANSFER AUTH [id number] AND TRANSPORT AUTH [id number]. HE ALSO PROVIDED ME PHONE NUMBERS FOR THEIR AFTER HOURS. [facility] [phone] AND JUAN JOSE [phone]. WILL CALL ALUMNI COORDINATOR SET UP WITH PUNEET. Addendum: 10/04/19 at 0907 by Leidy Amador CM RECEIVED A VOICE MESSAGE FROM KIAH OF [facility], TO GATHER MORE INFORMATION REGARDING THE PATIENT. CONTACTED [facility] TRANSFER [facility], ABLE TO SPEAK TO KARENA, REQUESTED TO BE TRANSFERRED TO [facility]. SHE STATED [facility] IS IN ANOTHER CALL HOWEVER SHE CAN HELP ME OUT. PROVIDED HER WITH INFORMATION NEEDED, UPDATED HER WELL REGARDING PATIENT'S CONDITION AND PATIENT WILL BE IN ICU LEVEL NOW DUE TO FENCE MAKING MACHINE OPERATOR WAS CALLED. PER KARENA SHE WILL UPDATE THE BED REQUEST. CONTACTED OMAR OF [facility] BED CONTROL, SHE STATED THEY DO NOT HAVE A TELE BED AND ACCEPTING DOC AT THIS TIME. UPDATED HER OF THE PATIENT'S CONDITION. PER OMAR WILL CHANGE REQUEST TO ICU BED. SHE ALSO REQUESTED A TRANSFER BACK AGREEMENT TO BE FAXED OVER TO THEM AND A HARD COPY OF THE AUTH FROM [facility]. CLAU OF [facility] MADE AWARE AND WILL FOLLOW UP WITH THEM. I ALSO REQUESTED IF I CAN START SENDING REFERRALS TO [facility] AND [facility]. HE STATED "NOT JUST YET", HE WILL CONTACT [facility] FIRST. CONTACTED [facility], REQUESTED TO BE TRANSFERRED TO [facility], LEGAL SUPPORT MANAGER PICKED UP AND STATED THEY ARE IN BED HUDDLE AND WAS TRANSFERRED TO CASE MANAGEMENT DEPARTMENT, ABLE TO SPEAK TO TERESSA. SHE STATED "I DON'T KNOW." AND TO JUST CALL BACK IN 15 MINS TO THE BUTTON BROACHER. WILL FOLLOW UP. Addendum: 10/04/19 at 0915 by Leidy Amador CM RECEIVED TRANSFER BACK AGREEMENT FROM [facility]. SIGNED BY MELONY AND FAXED IT BACK TO [facility]. WILL FOLLOW UP. Addendum: 10/04/19 at 1024 by Leidy Amador 0941: RECEIVED A MESSAGE FROM MATIAS OF [facility] TRANSFER CENTER, STATING THE THEIR POLICE SURGEON REVIEWED THE REFERRAL AND UNFORTUNATELY HAVE TO DECLINE THE CASE DUE TO PATIENT DOES NOT NEED HIGHER LEVEL TRANSFER BECAUSE ANY HOSPITAL CAN DO THE PROCEDURE THEY DO AND ALL WE HAVE TO DO IS TO MAKE A REQUEST. 0956: RECEIVED A VOICE MESSAGE TO CALL HIM BACK. CONTACTED CLAU OF [facility], HE STATED THAT HE REACHED OUT TO HIS EMPLOYEE REPRESENTATIVE REGARDING MATTHEW'S REQUEST FOR THE HARD COPY OF THE AUTH. PER CLAU THEY DO NOT PROVIDE A HARD COPY UNLESS PATIENT GOT ACCEPTED TO THE FACILITY HOWEVER THEY CAN LOOK IT UP IN THE PORTAL. OMAR OF [facility] BED CONTROL MADE AWARE, PROVIDED HER WITH THE VERBAL AUTH FROM CLAU OF [facility]. SHE ALSO CONFIRMED THAT SHE RECEIVED THE TRANSFER BACK AGREEMENT FORM. WILL FOLLOW UP. CLAU ALSO AGREED TO SEND REFERRAL TO [facility]. WILL SEND REFERRAL. Addendum: 10/04/19 at 1325 by Leidy Amador 1010: REFERRAL SENT TO [facility] 1020: RECEIVED A CALL FROM [facility], TO CONFIRM THAT THEY RECEIVED THE REFERRAL. SHE STATED THAT THEY REQUIRE A PDF COPY OF THE FORM AND WILL SEND IT AN E MAIL ATTACHMENT AND SEND IT BACK TO THEM IN THE SAME FILE. RECEIVED THE EMAIL, FILLED IT OUT AND E MAILED IT BACK. 1150: RECEIVED A CALL FROM [facility], STATING THAT THEY CANNOT ACCEPT THE E MAIL ATTACHMENT I SENT THEM. SHE GUIDED ME THROUGH THE PROCESS. WILL FOLLOW UP. Addendum: 10/04/19 at 1403 by Leidy Amador CM 1345: RECEIVED A CALL FROM [facility], REQUESTING PATIENT'S BLOOD TYPE. COPY OF PATIENT'S BLOOD TYPE SENT TO [facility]. 1351: RECEIVED ANOTHER CALL FROM [facility], ASKING IF PATIENT CAN SIGN HIS OWN CONSENT. INFORMED HER THAT PATIENT IS AOX4 AND ABLE TO SIGN CONSENT. SHE WAS INQUIRING IF PATIENT IS OK WITH THE PLASMA TRANSFUSION OR REMDESIVIR TRIAL BEFORE THEY CAN START THE PROCESS BECAUSE SHE STATED THAT THERE IS NO USE IN PROCESSING THE TRANSFER IF THE PATIENT IS NOT CONSENTING. CHARGE NURSE TALIA MADE AWARE. WILL FOLLOW UP. Addendum: 10/04/19 at 1605 by Leidy Amador CM PER OMAR OF [facility] BED CONTROL, NO BED AND NO ACCEPTING DOCTOR YET. PER JESS OF [facility], THEY ARE STILL REVIEWING THE CASE. WILL FOLLOW UP. Addendum: 10/04/19 at 1634 by Leidy Amador CM CLAU HUBBARD [facility] MADE AWARE. HE PROVIDED ME WITH WEEKEND COVERAGE FOR THE WEEKEND. MONDAY WILL BE KARENA AT [phone] AND FOR MONDAY KATHY AT [phone]. Addendum: 10/05/19 at 1208 by Kenan LUA MARIE CONTACTED KARENA FROM [facility] [phone] FOR TRANSPORTATION AUTH FOR PATIENT TO [facility]. TRANSPORTATION AUTHORIZATION NUMBER #[id number]. INPATIENT AUTH #[id number]. MARIE CONTACTED RASHIDA FROM [facility] . MARIE ARRANGED FOR WILL-CALL. MARIE INFORMED ICU NURSE.
--- NOTE | 2019-09-30 11:24 | NUR ---
GAVE PT ROBITUSSIN 20MG PO FOR COUGHING.
--- NOTE | 2019-09-30 13:07 | NUR ---
PRODUCT ENGINEERING MANAGER NOTE: Basic Screen: Yes High Risk DC Screen [place]: ORLANDO Mckeon Relationship: DAUGHTER Pre-Admission Living Arrangements: Lives with Other Prior ADL Independent Current Home Health Name/Tel: N/A Current DME/02 Name/Tel: N/A Current Hospice Name/Tel: N/A Current Dialysis Name/Tel: N/A Healthcare Decision Maker: Patient Advance Directive No Physician Orders for Life Sustaining Treatment Form No Patient/Family Have Educational Needs No Discipline: Case Mgt/Social Svcs Tentative Discharge Plan/Destination: No Needs Identified Will require assistance post discharge: No Referred to Staff Writer: No Tentative Discharge Plan Summary: PATIENT IS A 59-YEAR-OLD MALE ADMITTED FOR DKA. PATIENT HAS PMHX OF DIABETES AND HYPERTENSION. PATIENT WAS ADMITTED FROM HOME WHERE SHE LIVES WITH HIS SON. SW CONTACTED PATIENT'S DAUGHTER ORLANDO MEDEIROS [phone]. PER ORLANDO, PATIENT IS INDEPENDENT WITH ALL ADLS AND REPORTS NO HISTORY OF MENTAL HEALTH OR SUBSTANCE ABUSE. TENTATIVE DISCHARGE PLAN IS FOR PATIENT TO RETURN HOME. NO FURTHER NEEDS IDENTIFIED. Signature: ROCK AYALA Date: September 30, 2019 Time: 12:22
--- NOTE | 2019-09-30 14:00 | NUR ---
RT AT PT BEDSIDE AT THIS TIME FOR SPO2 <90%.
--- NOTE | 2019-09-30 14:10 | NUR ---
PT WAS SAT @ 86% ON RA UPON MY ARRIVAL PT WAS PLACED ON 2LNC AND IS RESTING COMFORTABLY
--- NOTE | 2019-09-30 14:52 | NUR ---
PCP APPOINTMENT: MESERET GAVIRIA CONTACTED DR. HELENE AMADOR'S OFFICE [phone] TO [facility] FOLLOW UP. MESERET SON WAS INSTRUCTED TO CALL BACK TO MAKE APPOINTMENT AFTER PATIENT IS DISCHARGED. NO FURTHER NEEDS IDENTIFIED.
--- NOTE | 2019-09-30 15:30 | NUR ---
DOCTOR FOFANA AT PT BEDSIDE. HAS ORDER [id number] DIET AND ROUTINE BMP LABS
--- NOTE | 2019-09-30 15:47 | NUR ---
PT IS RESTING COMFORTABLY ON 2LNC SPO2 92% HR 83 f 16 138/70
--- NOTE | 2019-09-30 16:00 | NUR ---
BG 273. WILL GIVE 6 UNITS INSULIN
[2019-09-30 16:29] LABS: ANION GAP 17.3 (8-16); CARBON DIOXIDE 16.3 mmol/L (21-32); CREATININE 2.7 mg/dL (0.6-1.3); POTASSIUM 4.6 mmol/L (3.5-5.1)
--- NOTE | 2019-09-30 18:00 | NUR ---
PT IS AWAKE AT THIS TIME. DENIES PAIN OR DISCOMFORT. 187 UO. VSS. PT DENIES BOWEL MOVEMENT DURING SHIFT. PT STILL HAS A COUGH THAT SOUNDS PRODUCTIVE. WILL ENDORSE TO DRAFTER CASTINGS NURSE. BED IS LOCKED. ROOM ENVIRONMENT IS FREE FROM CLUTTER. WILL CONTINUE TO MONITOR.
--- NOTE | 2019-09-30 19:30 | NUR ---
RECEIVED REPORT FROM DAY SHIFT PT RESTING IN BED, ON 2 L NASAL CANNULA, 2 PERIPHERAL IVS RAC AND LAC, PT PULSES PALPABLE UPPER LOWER EXTREMITIES BILATERAL, S1 AND S2 HEART SOUNDS HEARD, LUNG SOUNDS DIMINISHED IN BASES, PT PERRLA 3MM AWAKE AND FOLLOWS COMMANDS, WILL CONTINUE TO MONITOR PT
[2019-09-30] MEDS: AZITHROMYCIN 500 MG in DEXTROSE 5% 250 ML IV SCH (20:00)
[2019-09-30] MEDS ORDERED: INSULIN LANTUS 100 UNITS/ML 10 ML VIAL SUBQ SCH (21:00)
--- NOTE | 2019-09-30 21:15 | NUR ---
PT MEDS GIVEN PT TOLERATING TREATMENT WILL CONTINUE TO MONITOR
--- NOTE | 2019-09-30 22:39 | NUR ---
DR. CHOUDHURY PAGED TO GIVE PT UPDATE
--- NOTE | 2019-09-30 22:49 | NUR ---
SPOKE WITH DR. CHOUDHURY GAVE PT UPDATE PT STABLE OFF OF DRIPS SINCE 9909/30/2019, PT IS AWAKE AND ALERT ABLE TO FOLLOW COMMANDS, AND IS TOLERATING TREATMENT, DR. CHOUDHURY GAVE CONFIRMATION TO DOWNGRADE PT TO TELE STATUS
[2019-09-30] MEDS: INSULIN LISPRO SLIDING SCALE 100 UNITS/ML VIAL SUBQ PRN (22:51)
--- NOTE | 2019-09-30 23:15 | NUR ---
PT TRANSFERRED TO [facility] UNIT REPORT GIVEN [id number]
--- NOTE | 2019-09-30 23:30 | NUR ---
RECEIVED PATIENT IN STABLE CONDITION FROM ICU NURSE FOR CONTINUITY OF CARE. RESPIRATIONS EVEN, UNLABORED. SKIN WARM, DRY AND INTACT. NO C/O PAIN. NO S/SX ACUTE DISTRESS. IV SITE TO RIGHT AC 20G PATENT/INTACT, INFUSING FLUIDS WELL. PATIENT ORIENTED TO ROOM/STAFF AND CALL LIGHT. SAFETY PRECAUTIONS IN PLACE. ISOLATION PRECAUTIONS OBSERVED BY ALL STAFF. CALL LIGHT WITHIN REACH. WILL CONTINUE TO MONITOR.
[2019-10-01] VITALS: BP 93/56
[2019-10-01] MEDS: DEXT 5% / NACL 0.45% 1,000 ML IV SCH (01:28)
--- NOTE | 2019-10-01 01:46 | NUR ---
AWAKE. CONTINUES IN STABLE CONDITION. NO C/O PAIN. NO S/SX ACUTE DISTRESS. CALL LIGHT WITHIN REACH. WILL CONTINUE TO MONITOR.
--- NOTE | 2019-10-01 02:00 | NUR ---
PATIENT NOTED TO BED DESATURATING ON NASAL CANNULA TO 84%. PT REPOSITIONED AND PLACED ON OXYMIZER AT 4LPM. PULSE OX SAT INCREASED TO 94%. COMFORT NEEDS MET AT THIS TIME. RN AWARE. WILL CONTINUE TO MONITOR.
--- NOTE | 2019-10-01 03:06 | NUR ---
MADE ROUNDS. PATIENT IS ASLEEP. NO C/O PAIN. NO S/SX ACUTE DISTRESS. CALL LIGHT WITHIN REACH. WILL CONTINUE TO MONITOR.
[2019-10-01 04:00] VITALS: BP 132/70
[2019-10-01] MEDS ORDERED: ALBUTEROL HFA MDI 90 MCG/ACTUATION 8 GM INH PRN (04:45)
--- NOTE | 2019-10-01 05:38 | NUR ---
PATIENT AWAKE. NO C/O PAIN. NO S/SX ACUTE DISTRESS. ISOLATION PRECAUTIONS OBSERVED BY ALL STAFF. CALL LIGHT WITHIN REACH. WILL CONTINUE TO MONITOR.
[2019-10-01 06:13] LABS: CARBON DIOXIDE 17.4 mmol/L (21-32); CREATININE 2.6 mg/dL (0.6-1.3); POTASSIUM 4.4 mmol/L (3.5-5.1)
[2019-10-01] MEDS: INSULIN LISPRO SLIDING SCALE 100 UNITS/ML VIAL SUBQ PRN ×2 (06:35→22:32)
[2019-10-01] MEDS: BLOOD GLUCOSE MONITORING 1 DEV DEV FS SCH ×4 (06:36→21:38)
--- NOTE | 2019-10-01 06:48 | NUR ---
PATIENT IN STABLE CONDITION. NO C/O PAIN. NO S/SX ACUTE DISTRESS. SAFETY PRECAUTIONS IN PLACE. ISOLATION PRECAUTIONS OBSERVED. CALL LIGHT WITHIN REACH. WILL CONTINUE TO MONITOR.
--- NOTE | 2019-10-01 07:16 | NUR ---
RECEIVED REPORT FROM RECREATION SPECIALIST NURSE RAJEEV FOR CONTINUITY OF CARE. PT IS AAOX4, KYRGYZ SPEAKING, AWAKE AND RESTING ON BED AT THIS TIME. RESPIRATION EVEN AND UNLABORED ON 4 LPM VIA OXIMIZER. NO SIGNS OF DISTRESS NOTED. IV ON LAC 20G, CLEAN AND INTACT, SALINE AND RAC 20G, CLEAN AND INTACT, INFUSING D5 NS 0.45 AT 40 ML/HR. SKIN CLEAN AND DRY. PT IS CONTINENT AND ABLE TO USE URANAL AT BEDSIDE. TELE MONITOR ATTACHED. SAFETY MEASURES IN PLACE. BED IN LOW POSITION AND CALL LIGHT WITHIN REACH. ENHANCED AND DROPLET PRECAUTION IN PLACE, SIGNS POSTED BY DOOR.
--- NOTE | 2019-10-01 07:35 | NUR ---
PT WAS RECEIVED ON 4L OXY AND WAS SAT 88% AND DROPPED TO 80% OXY WAS TITRATED UP TO 7L PT SAT 91% AT TIME OF DEPARTURE OF PT ROOM AND TOLERATED WELL PT IS UNABLE TO LAY FLAT AND WILL NEED TPO KEEP HEAD OF BED ELEVATED
[2019-10-01 08:00] VITALS: BP 122/68
[2019-10-01] MEDS: ENOXAPARIN 30 MG/0.3 ML SYR SUBQ SCH (09:29)
[2019-10-01] MEDS: METOPROLOL 25 MG TAB PO SCH ×2 (09:31→21:15)
--- NOTE | 2019-10-01 09:39 | NUR ---
CHECKED BP PRIOR TO MED ADMINISTER, BP 122/68 PULSE 80. ADMINISTERED MEDS PER MD ORDER, MEDS EDUCATION PROVIDED AND PT SAID OK. PT TOLERATED PO MED WELL. PT AWAKE AND RESTING ON BED AT THIS TIME. ON 7 LPM VIA OXIMIZER SPOZ AT 90% AT THIS TIME. DENIED PAIN, SOB, AND DIZZINESS. NO SIGNS OF DISTRESS NOTED. TELE MONITOR ATTACHED. SAFETY MEASURES IN PLACE. BED IN LOW POSITION AND CALL LIGHT WITHIN REACH.
--- NOTE | 2019-10-01 10:29 | NUR ---
RECEIVED A CALL FROM PT'S DAUGHTER JORGE LUIS, UPDATED JORGE LUIS WITH PT'S CURRENT CONDITION AND SHE WAS AWARE.
[2019-10-01] MEDS: guaiFENesin DM 200/20 MG-10 ML 10 ML UDC PO PRN (11:25)
--- NOTE | 2019-10-01 11:31 | NUR ---
PT COMPLAINED OF COUGHING AND HE FEELS RESTLESS, ADMINISTERED PRN COUGH MED ROBITUSSIN PER MD ORDER, MED EDUCATION PROVIDED AND PT SAID OK. CHECKED BLOOD GLUCOSE AND RECEIVED 140, NO COVERAGE NEEDED. VITAL SIGNS TAKEN. PT AWAKE AND RESTING ON BED. INSTRUCTED PT TO KEEP OXIMIZER ON AT ALL TIME AND BREATHING THOUGH NOSE, PT VERBALIZED UNDERSTANDING. NO ACUTE DISTRESS NOTED. TELE MONITOR ATTACHED. SAFETY MEASURES IN PLACE. BED LOCKED.
[2019-10-01 12:00] VITALS: BP 130/69
--- NOTE | 2019-10-01 13:25 | NUR ---
PT IS RESTING ON BED COMFORTABLY. INTERMITTENT COUGHS NOTED. RESPIRATION EVEN AND UNLABORED ON 7 LPM VIA OXYMIZER, SPO2 AT 90%. REMINDED PT TO KEEP OXYMIZER ON AND BREATHING THOUGH NOSE, PT NODDED. NO SIGNS OF ACUTE DISTRESS NOTED. TELE MONITOR ATTACHED. SAFETY MEASURES IN PLACE.
--- NOTE | 2019-10-01 13:34 | NUR ---
10/01/19 RD INITIAL ASSESSMENT COMPLETED PLEASE REFER TO NUTRITION ASSESSMENT UNDER CARE ACTIVITY FOR ESTIMATED NUTRITIONAL NEEDS. 1. [facility]UE [facility] DIET TOLERATED 2. RECOMMEND MECHANICAL SOFT AND PROTEIN RESTRICTION OF 70 GM/DAY D/T CKD 3. RD TO PROVIDE NUTRITION EDUCATION ON CONSISTENT CARBOHYDRATE INTAKE 4. RD TO FOLLOW-UP 3-5 DAYS, MODERATE RISK GEOVANNA ARAUJO, RD
--- NOTE | 2019-10-01 14:42 | NUR ---
DR REGALADO IS ASSESSING AND TALKING TO PT AT BEDSIDE.
--- NOTE | 2019-10-01 15:04 | NUR ---
PT IS TALKING ON HIS CELLPHONE. NO SIGNS OF DISTRESS NOTED. TELE MONITOR ATTACHED. SAFETY MEASURES IN PLACE.
[2019-10-01 16:00] VITALS: BP 148/77
--- NOTE | 2019-10-01 16:28 | NUR ---
CHECKED BLOOD GLUCOSE AND RECEIVED 144, NO COVERAGE NEEDED. INSTRUCTED PT TO FOCUS ON BREATHING, SPO2 AT 91% AT THIS TIME. DENIED PAIN,SOB AND DIZZINESS. NO SIGNS OF DISTRESS NOTED. TELE MONITOR ATTACHED. SAFETY MEASURES IN PLACE.
--- NOTE | 2019-10-01 17:32 | NUR ---
OXYGENATION DESATURATED TO 88%, READJUSTED OXIMIZER AND STABLE WITH TRESPASSING DRESSING, EDUCATED PT TO BREATH THOUGH HIS NOSE INSTEAD OF MOUTH, ASKED PATIENT TO PRONE POSITION, AND EXPLAINED PRONE POSITION PRMOTE OXYGENATION, PT SAID "LATER." OXYGEN WENT UP TO 92% AT THIS TIME. NO SIGNS OF ACUTE DISTRESS NOTED. TELE MONITOR ATTACHED. SAFETY MEASURES IN PLACE. BED LOCKED.
--- NOTE | 2019-10-01 19:07 | NUR ---
ENDORSED PT AT WINDOW-SIDE TO LAY OUT AND DETAIL DRAFTER NURSE MIMILIN FOR CONTINUITY OF CARE. PT AWAKE AND RESTING ON BED AT THIS TIME. SPOE AT 91% ON 7 LPM VIA OXIMIZER, ENCOURAGED PT TO BE ON PRONE POSITION. NO SIGNS OF DISTRESS NOTED. TELE MONITOR ATTACHED. PT IS IN STABLE CONDITION.
--- NOTE | 2019-10-01 19:08 | NUR ---
RECEIVED ENDORSEMENT FROM AM SHIFT RN. PATIENT IS IN BED, AWAKE. RESPIRATION EVEN AND UNLABORED. NO SOB. WITH O2 VIA OXIMIZER AT 89%. IV SITE TO LAC 18G AND RAC20 WITH IVF INFUSING. PLAN OF CARE WAS DISCUSSED. CALL LIGHT WITHIN REACH. WILL CONTINUE TO MONITOR.
[2019-10-01 20:00] VITALS: BP 135/76
[2019-10-01] MEDS: INSULIN LANTUS 100 UNITS/ML 10 ML VIAL SUBQ SCH (21:00)
--- NOTE | 2019-10-01 21:38 | NUR ---
DUE MEDS GIVEN ORDERED. TOLERATED WELL. CALL LIGHT WITHIN REACH. WILL CONTINUE TO MONITOR.
[2019-10-01] MEDS: AZITHROMYCIN 500 MG in DEXTROSE 5% 250 ML IV SCH (22:48)
[2019-10-02] VITALS: BP 137/77
--- NOTE | 2019-10-02 | NUR ---
VITAL SIGNS TAKEN. DENIES PAIN. NO SOB. WILL CONTINUE TO MONITOR.
[2019-10-02] MEDS: DEXT 5% / NACL 0.45% 1,000 ML IV SCH ×2 (01:25→06:26)
--- NOTE | 2019-10-02 03:51 | NUR ---
PATIENT IS SLEEPING. RESPIRATION EVEN AND UNLABORED. WILL CONTINUE TO MONITOR.
[2019-10-02 04:00] VITALS: BP 145/86
--- NOTE | 2019-10-02 05:41 | NUR ---
PATIENT IS ASLEEP. NO SOB. NOT IN ANY ACUTE DISTRESS. O2 SAT AT 99% VIA OXIMIZER AT 7LPM.
[2019-10-02 06:02] LABS: BASOPHILS # (AUTO) 0.1 K/uL (0.00-0.22); BASOPHILS % (AUTO) 0.5 % (0.0-2.0); EOSINOPHILS % (AUTO) 0.3 % (0.0-4.0); HEMATOCRIT 36.7 % (36-52); HEMOGLOBIN 12.1 g/dL (12.0-18.0); LYMPHOCYTES # (AUTO) 0.9 K/uL (2.0-11.5); LYMPHOCYTES % (AUTO) 7.1 % (20.5-51.1); MEAN CORPUSCULAR HEMOGLOBIN 29 pg (27-31); MEAN CORPUSCULAR HGB CONC 33 g/dL (33-37); MEAN CORPUSCULAR VOLUME 88.6 fL (80-94); MONOCYTES # (AUTO) 0.9 K/uL (0.8-1.0); NEUTROPHILS # (AUTO) 11.1 K/uL (1.8-7.7); NEUTROPHILS % (AUTO) 85.1 % (42.2-75.2); PLATELET COUNT (AUTO) 318 K/uL (140-450); RED BLOOD CELL COUNT(AUTO) 4.14 MIL/uL (4.20-6.10); RED CELL DISTRIBUTION WIDTH 13.2 % (11.6-13.7)
[2019-10-02] MEDS: guaiFENesin DM 200/20 MG-10 ML 10 ML UDC PO PRN ×2 (06:09→20:30)
[2019-10-02 06:23] LABS: ANION GAP 12.8 (8-16); CREATININE 2.2 mg/dL (0.6-1.3); POTASSIUM 3.8 mmol/L (3.5-5.1); TOTAL BILIRUBIN 0.1 mg/dL (0.0-1.0)
[2019-10-02] MEDS: BLOOD GLUCOSE MONITORING 1 DEV DEV FS SCH ×4 (06:24→21:00)
--- NOTE | 2019-10-02 07:05 | NUR ---
PATIENT IS ASLEEP. NO SOB. ENDORSED PATIENT TO AM SHIFT RN FOR CONTINUITY OF CARE.
--- NOTE | 2019-10-02 07:10 | NUR ---
RECEIVED ENDORSEMENT FROM AM SHIFT NURSE, SAMI, FOR CONTINUITY OF CARE. PATIENT IS IN BED, AWAKE. RESPIRATION EVEN AND UNLABORED. NO SOB. WITH 7L/MIN O2 VIA OXIMIZER AT 100%. IV SITE TO LAC 18G WITH D51/2NS INFUSING AT 40ML/HR AND RIGHT AC 20G SALINE LOCKED. PLAN OF CARE WAS DISCUSSED. DROPLET ISOLATION IN PLACE. SAFETY PRECAUTIONS IN PLACE. CALL LIGHT WITHIN REACH. WILL CONTINUE TO MONITOR.
[2019-10-02 08:00] VITALS: BP 147/74
[2019-10-02] MEDS: METOPROLOL 25 MG TAB PO SCH ×2 (08:57→20:51)
--- NOTE | 2019-10-02 09:00 | NUR ---
MORNING MEDICATIONS GIVEN. BP 147/74, HR 77. NO SIGNS OF DISTRESS NOTED. WILL CONTINUE TO MONITOR.
[2019-10-02] MEDS: ENOXAPARIN 30 MG/0.3 ML SYR SUBQ SCH (09:38)
--- NOTE | 2019-10-02 10:00 | NUR ---
PAGED RT FOR PT'S DESATURATION TO 82%. PT. COMPLAINS DIFFICULTY BREATHING AND IS SITTING AT THE EDGE OF THE BED. WILL CONTINUE TO MONITOR.
--- NOTE | 2019-10-02 10:12 | NUR ---
CALLED TO ROOM FOR PT DESAT TO 85% GAVE MDI TX OF ALBUTEROL 2 PUFFS AND INCREASED FIO2 TO 9L NOTIFIED LOUISE RON OF CHANGES MADE
--- NOTE | 2019-10-02 10:30 | NUR ---
INFORMED BY RT THAT O2 IS INCREASED TO 9LPM VIA OXIMIZER WITH O2 STAT OF 95%. WILL CONTINUE TO MONITOR.
[2019-10-02] MEDS: INSULIN LISPRO SLIDING SCALE 100 UNITS/ML VIAL SUBQ PRN ×3 (11:36→22:25)
[2019-10-02 12:00] VITALS: BP 138/77
--- NOTE | 2019-10-02 14:32 | NUR ---
PT'S DAUGHTER, BIMAL, CALLED ABOUT PT'S CONDITION. CONFIRMED FROM PT. IF I CAN GIVE MEDICAL INFORMATION TO DAUGHTER, PT. AGREES. WILL CONTINUE TO MONITOR.
[2019-10-02 16:00] VITALS: BP 108/63
--- NOTE | 2019-10-02 18:05 | NUR ---
SPOKE TO DR. SUTTON ABOUT PT'S HR OF 130 ON TELEMETRY. NEW ORDERS TO REPLACE PT. BACK INTO 1LPM O2. WILL FOLLOW THROUGH. Addendum: 10/02/19 at 1813 by Dipika Charlton RN WRONG PATIENT
--- NOTE | 2019-10-02 19:10 | NUR ---
CALLED DR. DAMON ABOUT PT'S O2 STAT OF 80%. NEW ORDERS FOR PT. TO BE ON HIGH ROSARIO O2. WILL FOLLOW THROUGH AND FOLLOW UP WITH RT.
--- NOTE | 2019-10-02 19:15 | NUR ---
CALLED RT. ABOUT PT'S DESATURATION AND NEW ORDERS FROM DR. DAMON. RT IS BY THE BEDSIDE, AND WILL ASSESS PT. WILL CONTINUE TO MONITOR.
--- NOTE | 2019-10-02 19:20 | NUR ---
PT DESATURATION NOTED AT 82% TO 85%, PT COUGHING AND IN RESPIRATORY DISTRESS, RT WAS HERE AND INCREASED THE OXYMIZER TO 13LPM.
--- NOTE | 2019-10-02 19:30 | NUR ---
ENDORSED TO PRODUCT TRANSFER PUMPER RNELISABET, FOR CONTINUITY OF CARE.
--- NOTE | 2019-10-02 19:31 | NUR ---
RECEIVED ENDORSEMENT FROM AM SHIFT NURSEASAF FOR CONTINUITY OF CARE. PATIENT IS IN BED, AWAKE. PT WITH 13L/MIN O2 VIA OXYMIZER AT 91%, RECENTLY INCREASED BY RT AT 1920, WILL CONTINUE TO MONITOR. IV SITE TO LAC 18G WITH D5 1/2NS INFUSING AT 40ML/HR AND RIGHT AC 20G SALINE LOCK. PLAN OF CARE WAS DISCUSSED. DROPLET ISOLATION IN PLACE. SAFETY PRECAUTIONS IN PLACE. CALL LIGHT WITHIN REACH. WILL CONTINUE TO MONITOR
[2019-10-02 20:00] VITALS: BP 128/87
[2019-10-02] MEDS: AZITHROMYCIN 500 MG in DEXTROSE 5% 250 ML IV SCH (20:20)
--- NOTE | 2019-10-02 20:22 | NUR ---
computer wow no not working no. 8, and no. 6. looked for more wow's nothing available, asked charge nursekai to help me find wow. IV MEDS WAS MANUALLY DONE, VERIFIED W/ KAI, CHARGE NURSE
[2019-10-02] MEDS: INSULIN LANTUS 100 UNITS/ML 10 ML VIAL SUBQ SCH (22:26)
[2019-10-03] VITALS: BP 149/86
--- NOTE | 2019-10-03 01:45 | NUR ---
JOEYLLA DAUGHTER CALLED, EXPLAINED TO HER THAT IV WAS INFILTRATED ON THE LEFT AC, ZITHROMAX STILL INFUSING ON THE OLD SITE, AND HAD TO TAKE IT OUT, CATHETER WAS INTACT. PT WAS COMPLAINING OF PAIN EARLIER, AND SAID TO HIM TO TO WAIT FOR A LITTLE WHILE AND TELL ME IF PAIN DOES NOT GO AWAY.
--- NOTE | 2019-10-03 02:07 | NUR ---
PT C/O OF PAIN TAKEN OUT FROM PREVIOUS IV SITE AT 0130, 11/05 PAIN. ADMNISTERED BEAUFORT.
--- NOTE | 2019-10-03 03:07 | NUR ---
PT VERBALIZED NO PAIN ON THE LEFT AC OLD SITE, PT TRYING TO SLEEP NOW.
--- NOTE | 2019-10-03 03:38 | NUR ---
PT'S O2 SAT UNSTABLE, STILL W/ OXYMIZER AT 13 LPM, PT OFF AND ON WITH O2 SAT LOWEST AT 85%, AND WHEN PT STOPPED COUGHING O2 UP TO 92% (HIGHEST). MONITORED CONTINUOUSLY. FREQUENT CHECKS
[2019-10-03] MEDS: DEXT 5% / NACL 0.45% 1,000 ML IV SCH (03:52)
[2019-10-03 04:00] VITALS: BP 139/76
--- NOTE | 2019-10-03 04:00 | NUR ---
RT WAS HERE ERNESTINA AND CHECKED ON PATIENT, HE SAID PT TOLERATING WELL ON OXYMIZER AT 13 LPM, TO INFORM HIM IF HE DE SAT'S. INFORMED RT THAT PT DE SAT WHEN HE TAKES OFF THE SURGICAL MASK AND THE BLANKET OFF HIS HEAD. THE BLANKET AND THE SURGICAL MASK HELPS SEAL THE OXYMIZER IN HIS NOSE.
--- NOTE | 2019-10-03 05:00 | NUR ---
PT SAID HE FEELS MUCH BETTER NOW COMPARED EARLIER, PT EARLIER HAD RESPIRATORRY DISTRESS BEGINNING OF SHIFT, NOW PT ONLY HAS O2 SAT DECREASING WHEN HE TAKES OFF HIS OXYMIZER/ TAKES OFF HIS SURGICAL MASK (SURGICAL MASK HELPS SEAL THE O2), AND WHEN HE TAKES OFF HIS BLANKET OVER HIS HEAD (BLANKET HELPS SEAL THE O2 OXYMIZER IN HIS NOSE).
[2019-10-03] MEDS: BLOOD GLUCOSE MONITORING 1 DEV DEV FS SCH ×4 (05:35→21:38)
[2019-10-03 05:59] LABS: BASOPHILS % (AUTO) 0.5 % (0.0-2.0); EOSINOPHILS # (AUTO) 0.2 K/uL (0-0.4); EOSINOPHILS % (AUTO) 1.9 % (0.0-4.0); HEMATOCRIT 34.2 % (36-52); HEMOGLOBIN 11.4 g/dL (12.0-18.0); LYMPHOCYTES # (AUTO) 0.7 K/uL (2.0-11.5); LYMPHOCYTES % (AUTO) 7.6 % (20.5-51.1); MEAN CORPUSCULAR HEMOGLOBIN 30 pg (27-31); MEAN CORPUSCULAR HGB CONC 33 g/dL (33-37); MEAN CORPUSCULAR VOLUME 88.6 fL (80-94); MONOCYTES % (AUTO) 11.3 % (1.7-9.3); NEUTROPHILS # (AUTO) 7.2 K/uL (1.8-7.7); NEUTROPHILS % (AUTO) 78.7 % (42.2-75.2); PLATELET COUNT (AUTO) 332 K/uL (140-450); RED BLOOD CELL COUNT(AUTO) 3.86 MIL/uL (4.20-6.10); RED CELL DISTRIBUTION WIDTH 13.5 % (11.6-13.7); WHITE BLOOD COUNT (AUTO) 9.2 K/uL (4.8-10.8)
--- NOTE | 2019-10-03 06:35 | NUR ---
PT A, A O X 3, AT BEDREST AT THIS TIME, WILL ENDORSE TO NEXT SHIFT TO MONITOR O2 SAT.
[2019-10-03 06:46] LABS: ALBUMIN 0.9 g/dL (3.4-5.0); ANION GAP 14.6 (8-16); CARBON DIOXIDE 19.3 mmol/L (21-32); POTASSIUM 3.9 mmol/L (3.5-5.1); TOTAL BILIRUBIN 0.1 mg/dL (0.0-1.0)
--- NOTE | 2019-10-03 07:15 | NUR ---
RECEIVED REPORT FROM NIGHT NURSE PT IS SLEEPING AND ON OXYMIZER AT 13ML. PT IS STABLE. SAFETY MEASURES IN PLACE CALL LIGHT WITHIN REACH. WILL CONTINUE TO MONITOR.
[2019-10-03 08:00] VITALS: BP 140/77
[2019-10-03] MEDS: METOPROLOL 25 MG TAB PO SCH ×2 (09:00→20:58)
[2019-10-03] MEDS: ENOXAPARIN 30 MG/0.3 ML SYR SUBQ SCH (09:01)
--- NOTE | 2019-10-03 09:19 | NUR ---
MEDICATIONS DUE GIVEN AND CHECK VITAL SIGNS PRIOR TO BP MEDICATIONS. BP 140/77 FL 89. PT OXYGEN LEVEL IS UNSTABLE AT 85 MMHG. INFORMED RT. SAFETY MEASURES IN PLACE AND CALL LIGHT WITHIN REACH. WILL CONTINUE TO MONITOR.
--- NOTE | 2019-10-03 11:42 | NUR ---
PAGED AND LET HIM KNOW THAT PATIENT HAS NO INDUSTRIAL HYGIENE TECHNICIAN ON THE CASE SINCE PATIENT IS ON 13L OXIMIZER, HE SAID HE WILL NOTIFY DR. DE PAZ..
--- NOTE | 2019-10-03 11:58 | NUR ---
CHECK BLOOD GLUCOSE AT THIS TIME 94MMG/DL AND PT VERBALIZES HES NOT HUNGRY. OXYGEN SATURATION AT 90% WITH 13LPM OXYMIZER. WILL CONTINUE TO MONITOR.
[2019-10-03 12:00] VITALS: BP 138/76
--- NOTE | 2019-10-03 13:30 | NUR ---
CHEST XRAY DONE AT THIS TIME TO CHECK FOR PNA/ RESPIRATORY FAILURE. WILL CONTINUE TO MONITOR.
--- NOTE | 2019-10-03 13:30 | NUR ---
PT HAD A CHEST XRAY AT THIS TIME. WILL CONTINUE RADHA MONITOR
--- NOTE | 2019-10-03 14:00 | NUR ---
PT IS STABLE AND SLEEPING WILL CONTINUE TO MONITOR
[2019-10-03 16:00] VITALS: BP 123/78
--- NOTE | 2019-10-03 17:49 | NUR ---
[facility] FROM [place] CALLED AND ASK SOME INFORMATION REGARDING PATIENT. I GAVE PHONE NUMBER TO HER.
--- NOTE | 2019-10-03 19:10 | NUR ---
RECEIVED REPORT FROM DAY SHIFT NURSE. PT IN BED WITH HOB ELEVATED. PT IS AWAKE, ALERT, AND ORIENTED. ABLE TO MAKE NEEDS KNOWN. RESPIRATIONS EVEN AND UNLABORED. WITH EPISODES OF INTERMITTENT COUGH. PT IS ON O2 13 LPM/OXIMIZER. DENIES ANY PAIN OR DISCOMFORT AT THIS TIME. PT HAS NO IV ACCESS AT THIS TIME. PLAN OF CARE DISCUSSED. PT VERBALIZED UNDERSTANDING. SAFETY MEASURES IN PLACE. CALL LIGHT WITHIN REACH. WILL CONTINUE TO MONITOR.
--- NOTE | 2019-10-03 19:10 | NUR ---
ENDORSED PT TO NIGHT NURSE PT IS STABLE.
[2019-10-03 20:00] VITALS: BP 146/83
--- NOTE | 2019-10-03 20:58 | NUR ---
VITAL SIGNS TAKEN. SCHEDULED MEDS GIVEN ORDERED. PT STILL ON O2 13LPM/OXIMIZER. RESPIRATIONS EVEN AND UNLABORED. O2 SAT 93%. IV G20 INSERTED ON LEFT WRIST. IVF RUNNING WELL. CALL LIGHT WITHIN REACH. WILL CONTINUE TO MONITOR.
[2019-10-03] MEDS ORDERED: HYDROXYCHLOROQUINE 200 MG TAB PO SCH (21:00)
[2019-10-03] MEDS: INSULIN LANTUS 100 UNITS/ML 10 ML VIAL SUBQ SCH (21:39)
--- NOTE | 2019-10-03 22:02 | NUR ---
PT SLEEP. NOT IN DISTRESS. O2 IN PLACE. RESPIRATIONS EVEN AND UNLABORED. O2 SAT 95%. PT KEPT COMFORTABLE. SAFETY MEASURES IN PLACE. WILL CONTINUE TO MONITOR.
[2019-10-04] VITALS (12 sets, daily range): BP systolic 135–165; BP diastolic 75–91
--- NOTE | 2019-10-04 00:05 | NUR ---
VITAL SIGNS WNL. PT IN BED RESTING WITH HOB ELEVATED. O2 94%. NO REQUESTS MADE AT THIS TIME. CALL LIGHT WITHIN REACH. WILL CONTINUE TO MONITOR.
[2019-10-04] MEDS ORDERED: DEXTROSE 50% 50 ML SYR IVP ONE (02:04)
--- NOTE | 2019-10-04 02:10 | NUR ---
BLOOD SUGAR 50. PT DIAPHORETIC. 2 SERVINGS OF ORANGE JUICE GIVEN TO PATIENT. D50 50ML IVP GIVEN WELL. VITAL SIGNS STABLE. WILL CONTINUE TO MONITOR.
--- NOTE | 2019-10-04 04:15 | NUR ---
VITAL SIGNS STABLE. NO S/SX OF DISTRESS NOTED. O2 IN PLACE. O2 SAT 95%. DENIES ANY PAIN OR DISCOMFORT. CALL LIGHT WITHIN REACH. WILL CONTINUE TO MONITOR.
[2019-10-04] MEDS: BLOOD GLUCOSE MONITORING 1 DEV DEV FS SCH ×4 (05:45→20:51)
--- NOTE | 2019-10-04 05:45 | NUR ---
BLOOG SUGAR 132. NO COVERAGE NEEDED. WILL CONTINUE TO MONITOR.
[2019-10-04 06:26] LABS: BASOPHILS # (AUTO) 0.1 K/uL (0.00-0.22); BASOPHILS % (AUTO) 0.6 % (0.0-2.0); EOSINOPHILS # (AUTO) 0.1 K/uL (0-0.4); EOSINOPHILS % (AUTO) 1.1 % (0.0-4.0); HEMATOCRIT 34.1 % (36-52); HEMOGLOBIN 11.4 g/dL (12.0-18.0); LYMPHOCYTES # (AUTO) 0.4 K/uL (2.0-11.5); LYMPHOCYTES % (AUTO) 3.1 % (20.5-51.1); MEAN CORPUSCULAR HEMOGLOBIN 30 pg (27-31); MEAN CORPUSCULAR HGB CONC 34 g/dL (33-37); MEAN CORPUSCULAR VOLUME 88.7 fL (80-94); MONOCYTES % (AUTO) 8.1 % (1.7-9.3); NEUTROPHILS # (AUTO) 10.6 K/uL (1.8-7.7); NEUTROPHILS % (AUTO) 87.1 % (42.2-75.2); PLATELET COUNT (AUTO) 315 K/uL (140-450); RED BLOOD CELL COUNT(AUTO) 3.84 MIL/uL (4.20-6.10); RED CELL DISTRIBUTION WIDTH 13.4 % (11.6-13.7); WHITE BLOOD COUNT (AUTO) 12.2 K/uL (4.8-10.8)
[2019-10-04 07:10] LABS: ALBUMIN 0.9 g/dL (3.4-5.0); ANION GAP 13.9 (8-16); CARBON DIOXIDE 20.9 mmol/L (21-32); CREATININE 1.9 mg/dL (0.6-1.3); POTASSIUM 3.8 mmol/L (3.5-5.1); TOTAL BILIRUBIN 0.1 mg/dL (0.0-1.0)
--- NOTE | 2019-10-04 07:25 | NUR ---
ENDORSED TO DAYSHIFT NURSE FOR CONTINUITY OF CARE. PT IN STABLE CONDITION.
--- NOTE | 2019-10-04 07:26 | NUR ---
RECEIVED PATIENT FROM ADJUNCT FACULTY NURSE FOR CONTINUITY OF CARE. PATIENT IS AWAKE. ARMEN[place] SPEAKING BUT CAN UNDERSTAND A LITTLE BIT OF [place]IZ[place]. NO SIGNS OF DISTRESS NOTED. BED. RESPIRATIONS EVEN AND UNLABORED, ON 15L O2 VIA NRB. VISIBLE CHEST RISE AND FALL NOTED. ON TELE MONITORING. ABDOMEN SOFT AND NONTENDER. CCHO 60GM DIET. SKIN WARM, DRY, AND INTACT. IV IN THE L WRIST 20, RUNNING D51/2NS AT 40 ML/HR. NO SIGNS OF IV INFILTRATION NOTED. FALL PRECAUTION. ON DROPLET PRECAUTION FOR COVID-19. BED IN LOW POSITION. CALL LIGHT IS WITHIN REACH. WILL CONTINUE TO MONITOR.
--- NOTE | 2019-10-04 07:41 | NUR ---
PATIENT'S O2SAT IS IN THE 60S. RT AT BEDSIDE. PAGED DR. DE PAZ. WILL WAIT FOR CALL BACK .
--- NOTE | 2019-10-04 07:51 | NUR ---
PATIENT O2SAT WAS BELOW 80%. RT AT BEDSIDE. CALLED RAPID RESPONSE. ACTIVATED. ABGS DONE. O2SAT 85%. PATIENT IS AWAKE AND ALERT.
--- NOTE | 2019-10-04 07:51 | NUR ---
RAPID RESPONSE CALLED PT TACHYPNEIC RR 30'S PT ON NON REBREATHER SPO2 DECREASED TO LOW 77%. NOTIFIED ABG OBTAINED.
--- NOTE | 2019-10-04 08:00 | NUR ---
RAPID RESPONSE DONE. PATIENT BP IS 1578/82, HR 101. O2SAT 87%%. WILL CONTINUE OT MONITOR.
--- NOTE | 2019-10-04 08:13 | NUR ---
RECEIVED A TELEPHONE ORDER FROM DR. DE PAZ. HE STATED TO PUT PATIENT ON A HIGH FLOW WITH NONREBREATHER MASK, IF THAT IS NOT AVAILABLE, PUT NONREBREATHER WITH 6L NC UNDERNEATH THE NRB MASK. IF THIS ALSO DID NOT WORK, PATIENT NEEDS TO BE ON BIPAP 16/10, RATE OF 12. TRANSFER TO ICU TO NEGATIVE PRESSURE ROOM. RT AND CHARGE NURSE AWARE. HOUSE SUP ALSO AWARE.
--- NOTE | 2019-10-04 08:15 | NUR ---
RECEIVED CALL FROM NURSE SALEEM WHO SPOKE TO TO PLACE 6L NC UNDER NRB MASK.
--- NOTE | 2019-10-04 08:20 | NUR ---
PATIENT IS SLEEPING AT THIS TIME. O2SAT IS 92% HR 97. WILL CONTINUE TO MONITOR.
--- NOTE | 2019-10-04 08:36 | NUR ---
RECEIVED A TELEPHONE ORDER FROM DR. DE PAZ FOR LAB BNP AND CHEST XRAY. WILL CARRY OUT ORDERS.
--- NOTE | 2019-10-04 09:00 | NUR ---
DR. DE PAZ AT BEDSIDE EXAMINING PATIENT.
--- NOTE | 2019-10-04 09:05 | NUR ---
PT TRANSFERRED TO ICU FROM [facility], REPORT RECEIVED FROM LOUISE SALEEM. PT IS AAOX4. AFEBRILE. DENIES PAIN. NORMAL SINUS RHYTHM ON MONITOR. O2 AT 15 LPM/ NONREBREATHER. SPO2 92%, RR 37, BREATHING EVEN BUT LABORED. PERIPHERAL IV G20 TO LEFT FOREARM PATENT AND INTACT, RUNNING D5 1/2NS AT 40 ML/HR. ABDOMEN SOFT, NONTENDER, BOWEL SOUNDS PRESENT. PULSES PALPABLE TO ALL EXTREMITIES. SKIN INTACT, DRY AND WARM TO TOUCH. HOB 30 DEGREES, BED IN LOWEST POSITION LOCKED. CALL LIGHT WITHIN REACH. WILL CONTINUE TO MONITOR.
--- NOTE | 2019-10-04 09:05 | NUR ---
PATIENT IS TRANFERRED TO ICU BED 7. GIVEN REPORT TO ANITA GIL. PATIENT O2 PRIOR TO TRANSFER IS 95% ON NRB MASK.
[2019-10-04] MEDS ORDERED: LOVENOX 1MG/KG Q24H SUBQ SCH (09:25)
[2019-10-04] MEDS: METOPROLOL 25 MG TAB PO SCH ×2 (09:28→20:52)
[2019-10-04] MEDS: ENOXAPARIN 30 MG/0.3 ML SYR SUBQ SCH (09:40)
--- NOTE | 2019-10-04 10:25 | NUR ---
DR. DE PAZ IN TO SEE PT. WILL FOLLOW UP ON ORDERS.
[2019-10-04] MEDS ORDERED: ENOXAPARIN 40 MG/0.4 ML SYR SUBQ SCH (10:30)
[2019-10-04] MEDS ORDERED: FUROSEMIDE 100 MG/10 ML VIAL IVP SCH (10:50)
[2019-10-04 10:55] LABS: PROTHROMBIN TIME 9.8 secs (10.8-13.4)
--- NOTE | 2019-10-04 11:50 | NUR ---
PT IS AWARE OF AND AGREES TO PLAN ON TRANSFERRING TO HIGHER LEVEL OF CARE FOR PLASMA TRANSFUSION.
[2019-10-04] MEDS: DEXTROSE 50% 50 ML SYR IVP PRN (11:53)
--- NOTE | 2019-10-04 12:25 | NUR ---
SPO2 DECREASED AFTER HAVING A FEW BITES OF LUNCH. NON-REBREATHER PUT BACK ON. RT MADE AWARE.
--- NOTE | 2019-10-04 14:54 | NUR ---
RECEIVED CALL FROM DAUGHTER, [place]. UPDATES GIVEN ON PT'S CONDITION.
--- NOTE | 2019-10-04 15:30 | NUR ---
PT'S SON DELIVERED UNDERGARMENTS, CELL PHONE AND TECHNICAL SALES DIRECTOR. PT RECEIVED AND REQUESTED TO PUT THEM AT BEDSIDE TABLE AT THIS TIME.
--- NOTE | 2019-10-04 15:35 | NUR ---
PT DESATURATING, SPO2 IN 80'S. RT KESHA MADE AWARE.
--- NOTE | 2019-10-04 15:40 | NUR ---
PT PLACED ON HIGH FLOW 25LPM FIO2 77% WITH NON REBREATHER APPLIED OVER PER REQUEST OF . NURSE MADE AWARE WILL CONTINUE TO MONITOR.
--- NOTE | 2019-10-04 15:45 | NUR ---
PT STATED HE AGREES TO BE TRANSFERRED TO [facility] FOR PLASMA TRANSFUSION, BUT NOT SURE ABOUT GETTING TREATED WITH REMDESIVIR. PT REQUESTED TO GIVE HIM SOME TIME TO THINK ABOUT IT AND TALK ABOUT IT WITH FAMILY BEFORE HE MADE A DECISION. WILL FOLLOW UP.
[2019-10-04] MEDS: FUROSEMIDE 40 MG/4 ML VIAL IVP SCH (16:08)
--- NOTE | 2019-10-04 16:45 | NUR ---
PT AGREES TO GETTING TREATMENT AT [facility] WITH EITHER REMDESIVIR OR PLASMA TRANSFUSION. MANUGRAPHER MADE AWARE.
--- NOTE | 2019-10-04 17:05 | NUR ---
DR. SHEARER IN TO SEE PT. UPDATES GIVEN ON PT'S CONDITION.
--- NOTE | 2019-10-04 18:09 | NUR ---
PT HAVING DINNER. NO S/SX OF ACUTE DISTRESS NOTED AT THIS TIME.
--- NOTE | 2019-10-04 19:25 | NUR ---
RECEIVED REPORT FROM DAYSHIFT NURSE AT PATIENTS BEDSIDE. ANOx4, MAKES NEEDS KNOWN, FOLLOWS ALL COMMANDS. BREATHING IS UNLABORED, ON HIGH FLOW NASAL CANNULA, 25L WITH 95% FI02, AND NONREBREATHER ALSO IN PLACE, SATURATIONS 90%, LUNG SOUNDS CLEAR ON LEFT UPPER LOBES BUT DIMINISHED AT ALL OTHER LOBES. PT TACHYPNEIC, RESPIRATIONS IN 30's. DENIES PAIN. S1S2, SR ON MONITOR. BP STABLE, AFEBRILE. SKIN WARM AND DRY, INTACT. ABDOMEN SOFT AND NONTENDER WITH ACTIVE BOWEL SOUNDS. PATIENT CONTINENT, URINAL AT BEDSIDE. PT CURRENTLY ON BEDPAN. ABLE TO MOVE ALL EXTREMITIES, MILD WEAKNESS NOTED. LEFT WRIST PERIPHERAL IV, 20G, FLUSHED AND PATENT, INFUSING D51/2NS @ 40ML. DROPLET PRECAUTIONS IN PLACE, COVID POSITIVE. ORIENTED TO CAREPLAN AND CALL LIGHT. WITHIN REACH. SIDERAILS UP x3, BED LOCKED AND IN LOWEST POSITION. WILL CONTINUE TO MONITOR.
--- NOTE | 2019-10-04 19:26 | NUR ---
REPORT GIVEN TO SAUSAGE STUFFER RN FOR CONTINUITY OF CARE. PT NOT IN ANY DISTRESS AT THIS TIME.
--- NOTE | 2019-10-04 20:15 | NUR ---
phone call from joni , medical staff services coordinator of [facility] regarding pts transfer to higher level of care; as per Joni, they will send their doctor to assess and talk to the pt himself re; treatment. notified milk house worker, guerda Barkermilk house worker spoke with Joni.
--- NOTE | 2019-10-04 20:17 | NUR ---
phone call made to dr banda re; higher level of care. manager instrumentation is dr Mesa. explained to dr mesa that [facility] doctor wants to personally talk to the patient regarding the intended treatment. Dr Mesa said its ok.
[2019-10-04] MEDS: INSULIN LANTUS 100 UNITS/ML 10 ML VIAL SUBQ SCH (21:00)
--- NOTE | 2019-10-04 21:00 | NUR ---
spoke with patient regarding higher level of care; pt alert and oriented x4; he said he is aware of the plan. he wants his daughter Sowmya Godinez to be involved with his care and made as flooring salesperson; phone number given by pt for daughter sowmya([phone])
--- NOTE | 2019-10-04 21:20 | NUR ---
phone call made to evelio virginie; pts daughter ([phone]); updated on pts condition, evelio said she is aware of the plan for higher level of care ; she is available to listen to the conversation between patient and [facility] doctor at 10 am tomorrow; she also mentioned that she can not come to the hospital because she also has the symptoms(fever/coughing). phone call to joni, scanning coordinator of [facility]; made aware that pts daughter is available tomorrow at 10 am. joni requested for pts latest v/s and aware that pts 02sat 80 at this time. faxed pts latest lab results per request.
--- NOTE | 2019-10-04 23:30 | NUR ---
ASSISTED PATIENT TO LEFT LATERAL POSITIONING AND LOWERED HEAD OF BED. PATIENT REPORTS BEING MORE COMFORTABLE IN THIS POSITION, SATURATIONS INCREASED TO 96%. REMAINS ON HIGH FLOW WITH NONREBREATHER. BED LOCKED AND IN LOW POSITION, CALL LIGHT WITHIN REACH. WILL CONTINUE TO MONITOR.
[2019-10-05] VITALS (14 sets, daily range): BP systolic 121–167; BP diastolic 25–95
--- NOTE | 2019-10-05 00:39 | NUR ---
PATIENT ABLE TO INDEPENDENTLY SELF TURN, SOME STANDBY ASSISTANCE. ABLE TO BEATER TENDER THROUGH SPEAKER. SWITCHED POSITIONS TO RIGHT SIDE LATERAL. SATURATIONS IMPROVED TO 100%. DENIES PAIN. ALL OTHER VITALS WITHIN NORMAL RANGE. AFEBRILE.
[2019-10-05] MEDS: DEXT 5% / NACL 0.45% 1,000 ML IV SCH (01:25)
--- NOTE | 2019-10-05 03:40 | NUR ---
PATIENT ACCIDENTLY RIPPED OUT IV TO LEFT FOREARM. PROVIDED SKIN CARE. RESTARTED NEW IV TO LEFT FOREARM 22G, GOOD BLOOD RETURN AND PATENT. D5NS INFUSING AT 40 ML. CLEANED PATIENT AND PROVIDED SPONGE BATH, CHANGED GOWN AND LINEN. TOLERATED WELL. PATIENT REMOVES MASK TO DRINK WATER, DESATURATES TO BELOW 70's. REAPPLIED NONREBREATHER AND NASAL CANNULA, INCREASES BACK TO 90%.
--- NOTE | 2019-10-05 05:05 | NUR ---
XRAY HERE AT BEDSIDE FOR ROUTINE CHEST XRAY, PATIENT ALMOST RIPPED OUT IV AGAIN. REINFORCED AND STILL PATENT WITH GOOD BLOOD RETURN. DENIES PAIN. CALL LIGHT WITHIN REACH.
--- NOTE | 2019-10-05 05:06 | NUR ---
PT REMAINS ON A HIGH FLOW NASAL CANNULA AT 25L/74% FIO2. PT ALSO HAS A NRB AT 15L ON TOP OF THE HIGH FLOW. PT IS RESTING COMFORTABLY. NO RESPIRATORY DISTRESS NOTED. WILL CONT TO MONITOR
[2019-10-05] MEDS: guaiFENesin DM 200/20 MG-10 ML 10 ML UDC PO PRN (05:30)
--- NOTE | 2019-10-05 05:36 | NUR ---
BLOOD PRESSURE ELEVATED, CHANGED BP CUFF AND READJUSTED AND TRIED DIFFERENT SITES. BP STILL IN 170'S. PATIENT COUGHING. GAVE PRN ROBITUSSIN AND CLONIDINE. WILL CONTINUE TO MONITOR. ASSISTED WITH POSITIONING
[2019-10-05 06:32] LABS: ALBUMIN 0.9 g/dL (3.4-5.0); ANION GAP 15.6 (8-16); CARBON DIOXIDE 21.6 mmol/L (21-32); POTASSIUM 3.2 mmol/L (3.5-5.1); TOTAL BILIRUBIN 0.2 mg/dL (0.0-1.0)
--- NOTE | 2019-10-05 06:34 | NUR ---
PATIENT RESTING WELL IN BED, EYES CLOSED, NO DISTRESS NOTED. BREATHING IS AT 25 RESPIRATIONS. SATURATIONS 93%. BLOOD PRESSURE IMPROVED AFTER CLONIDINE 144/84. HOB 30 DEGREES, CALL LIGHT WITHIN REACH, SIDERAILS UP x3. FLACC 0.
[2019-10-05] MEDS: DEXTROSE 50% 50 ML SYR IVP PRN (06:59)
[2019-10-05] MEDS: BLOOD GLUCOSE MONITORING 1 DEV DEV FS SCH ×3 (06:59→16:30)
--- NOTE | 2019-10-05 07:42 | NUR ---
CHECKED PTS BLOOD SUGAR 157 AFTER D50 GIVEN FOR BLOOD SUGAR OF 45 BY NIGHT NURSE. PT RESTING, DENIES ANY PAIN OR DISTRESS. NO RESPIRATORY DISTRESS NOTED. OFFERED PT HIS BREAKFAST, PT STATED HE DID NOT WANT TO EAT YET. DROPLET PRECAUTIONS IN PLACE. WILL CONTINUE TO MONITOR.
[2019-10-05] MEDS: FUROSEMIDE 40 MG/4 ML VIAL IVP SCH ×2 (08:54→17:57)
[2019-10-05] MEDS: METOPROLOL 25 MG TAB PO SCH (08:54)
--- NOTE | 2019-10-05 08:57 | NUR ---
MEDICATIONS ADMINISTERED PER ORDER. PT TOLERATED WELL. PT SET UP FOR BREAKFAST. OXYGEN MASK REMOVED SO PT CAN EAT, BUT HIGHFLOW O2 CANULA IN PLACE. RT PETER AWARE AND IN THE ROOM WITH PT. WILL PUT MASK ON AGAIN AFTER DONE WITH BREAKFAST.
[2019-10-05] MEDS ORDERED: ENOXAPARIN 80 MG/0.8 ML SYR SUBQ SCH (09:00)
--- NOTE | 2019-10-05 09:31 | NUR ---
PT FINISHED EATING AND IS BACK ON NON REBREATHER MASK OVER HIGHFLOW NASAL CANNULA. RT KARAN FUENTES.
[2019-10-05 10:11] LABS: BASOPHILS # (AUTO) 0.1 K/uL (0.00-0.22); BASOPHILS % (AUTO) 0.5 % (0.0-2.0); EOSINOPHILS # (AUTO) 0.3 K/uL (0-0.4); EOSINOPHILS % (AUTO) 2.4 % (0.0-4.0); HEMATOCRIT 35.4 % (36-52); HEMOGLOBIN 11.6 g/dL (12.0-18.0); LYMPHOCYTES # (AUTO) 0.8 K/uL (2.0-11.5); LYMPHOCYTES % (AUTO) 5.9 % (20.5-51.1); MEAN CORPUSCULAR HEMOGLOBIN 29 pg (27-31); MEAN CORPUSCULAR HGB CONC 33 g/dL (33-37); MEAN CORPUSCULAR VOLUME 89.5 fL (80-94); MONOCYTES # (AUTO) 0.9 K/uL (0.8-1.0); MONOCYTES % (AUTO) 6.7 % (1.7-9.3); NEUTROPHILS # (AUTO) 11.2 K/uL (1.8-7.7); NEUTROPHILS % (AUTO) 84.5 % (42.2-75.2); PLATELET COUNT (AUTO) 244 K/uL (140-450); RED BLOOD CELL COUNT(AUTO) 3.96 MIL/uL (4.20-6.10); RED CELL DISTRIBUTION WIDTH 13.4 % (11.6-13.7); WHITE BLOOD COUNT (AUTO) 13.2 K/uL (4.8-10.8)
--- NOTE | 2019-10-05 10:41 | NUR ---
CONFERENCE CALL COMPLETED WITH PT, HIS DAUGHTER MARIETTA AND DOCTOR AND UNDERWRITING ASSISTANT AT [facility]. CLINICAL STUDY WITH REMDEZIVIR FOR COVID-19 EXPLAINED TO PT WELL ANSWERED HIS QUESTIONS. PT CONSENTS TO BE TRANSFERRED TO [facility]. CONSENTS FOR ACKNOWLEDGEMENT OF TRANSFER AND RELEASE OF MEDICAL RECORDS SIGNED BY PT.
--- NOTE | 2019-10-05 12:28 | NUR ---
BLOOD SUGAR CHECKED AT THIS TIME 113, NO COVERAGE NEEDED. 40 MEQ KDUR GIVEN FOR POTASSIUM OF 3.2. PT TOLERATED WELL. PT POSITIONED TO EAT LUNCH AT THIS TIME.
--- NOTE | 2019-10-05 13:03 | NUR ---
PT FINISHED EATING 80% OF HIS LUNCH. NO DISTRESS NOTED. WILL CONTINUE TO MONITOR.
--- NOTE | 2019-10-05 14:58 | NUR ---
PT IN BED, ASLEEP. NO DISTRESS NOTED. WILL CONTINUE TO MONITOR.
--- NOTE | 2019-10-05 16:12 | NUR ---
LASIX GIVEN PER ORDER. BLOOD GLUCOSE CHECKED 64. ORANGE JUICE GIVEN. WILL RECHECK. PT CONDITION UNCHANGED
--- NOTE | 2019-10-05 18:11 | NUR ---
RECEIV[place] [facility] [place] BED RESERVED IN UN[address] IN BED ONE. THE BED WILL BE HELD UNTIL 10PM. PT TO BE PICKED UP AT 2000
--- NOTE | 2019-10-05 18:41 | NUR ---
CALLED AND GAVE REPORT TO SELENA. ACCEPTING NURSE WILL BE IRVING. PT GOING TO [address] BED 1 AT [facility].
--- NOTE | 2019-10-05 19:15 | NUR ---
REPORT GIVEN TO NIGHT NURSE FOR CONTINUITY OF CARE.
--- NOTE | 2019-10-05 19:15 | NUR ---
BEDSIDE REPORT RECEIVED FROM AM SHIFT RN. PT A&OX4. PT ON NON BREATHER 15L AND HIGH FLOW FIO2 30%. O2 SATURATION 96%. SINUS RHYTHM ON MONITOR. IV SITE L FOREARM 20 G. INTACT, PATENT, SALINE LOCKED. SKIN WARM AND DRY. INTACT. CALL LIGHT WITHIN REACH. SAFETY PRECAUTIONS IN PLACE. BED LOCKED IN LOWEST POSITION. WILL CONTINUE TO MONITOR.
--- NOTE | 2019-10-05 19:30 | NUR ---
[facility] ARRIVED. REPORT GIVEN TO RN.
--- NOTE | 2019-10-05 19:45 | NUR ---
PT TRANSFERRED TO [facility] VIA [facility]. NO DISTRESS NOTED. PT STABLE UPON TRANSFER.
[2019-10-05] MEDS ORDERED: INSULIN LANTUS 100 UNITS/ML 10 ML VIAL SUBQ SCH (21:00)
== END 2019-10-05 19:45 | disposition short-term general hospital (02) | DRG 137 ==
LOC: MED 17:17 → EEVIPCON 17:17 → MIC 20:24 → MMU 09-30 23:30 → MIC 10-04 09:19
PROVIDERS: ADMIT Internal Medicine; ATTEND Internal Medicine
DX: U07.1 COVID-19 (principal); J96.01 Acute respiratory failure with hypoxia; E43 Unspecified severe protein-calorie malnutrition; E11.10 Type 2 diabetes mellitus with ketoacidosis without coma; N17.9 Acute kidney failure, unspecified; E86.0 Dehydration; J12.89 Other viral pneumonia; Z68.27 Body mass index [BMI] 27.0-27.9, adult; E11.22 Type 2 diabetes mellitus with diabetic chronic kidney disease; E87.70 Fluid overload, unspecified; F17.200 Nicotine dependence, unspecified, uncomplicated; I12.9 Hypertensive chronic kidney disease with stage 1 through stage 4 chronic kidney disease, or unspecified chronic kidney disease; N18.9 Chronic kidney disease, unspecified; Z83.3 Family history of diabetes mellitus; K21.9 Gastro-esophageal reflux disease without esophagitis; N20.0 Calculus of kidney; Z79.4 Long term (current) use of insulin
CPT/HCPCS: 36415; 36600; 71045; 76770; 80048; 80053; 81001; 82550; 82553; 82803; 82948; 83036; 83605; 83735; 83880; 84100; 84484; 85025; 85379; 85384; 85610; 85730; 86140; 86886; 86900; 86901; 87040; 87081; 87086; 93005; 94664; 96361; 96365; 96367; 96372; 99291; J0456; J0696; J1650; J1815; J1940; J3475; J3535; J7030; J7060; Q0092; U0003-CS